=== PATIENT | female | born 1995 | race American Indian/Alaskan Native ===

== ENCOUNTER 2019-11-17 10:03 | Emergency (ER) | payer MEDICAID ==
[2019-11-17] MEDS ORDERED: dilTIAZem 25 MG/5 ML INJ ONE (10:13)
[2019-11-17] MEDS ORDERED: LORazepam 2 MG/ML VIAL ONE (10:19)
[2019-11-17] MEDS ORDERED: SODIUM CHLORIDE 0.9% 1000 ML 1,000 ML IV ONE (10:24)
[2019-11-17] MEDS ORDERED: LORazepam 2 MG/ML VIAL IV ONE (10:26)
[2019-11-17] MEDS ORDERED: dilTIAZem 25 MG/5 ML INJ IV ONE (10:26)
--- NOTE | 2019-11-17 10:31 | Emergency Department Report ---
ED Palpitations HPI - General Stated Complaint: ANXIETY Time Seen by Provider: 11/17/19 10:24 Source: patient, EMS - History of Present Illness Initial Comments: Patient is 24-year-old female with no significant past medical history. Patient presented to the ER via EMS from home for evaluation of sudden onset of palpitation. Patient treated the SVT by EMS and given adenosine 6 and 12 mg with no response. Patient stated that symptoms started during argument with her boyfriend. Patient denied any previous similar symptoms. Patient denied any chest pain or shortness of breath. She stated that she is feeling lightheaded. Patient denied any fever or chills recently. In the emergency room patient heart rate is 160 bpm. Patient given Cardizem 10 mg IV push with no significant improvement. Patient also given Ativan 1 mg IV with improvement. EKG showed a sinus tachycardia. MD Complaint: rapid heart beat, "heart racing", palpitations -: Sudden, This morning Context: occured during rest Treatments Prior to Arrival: adenosine - Related Data Allergies Allergy/AdvReac Type Severity Reaction Status Date / Time No Known Allergies Allergy Verified 03/28/18 13:44 ED Review of Systems ROS: Stated complaint: ANXIETY Other details as noted in HPI Comment: All other systems reviewed and negative Constitutional: denies: chills, fever Respiratory: denies: cough, shortness of breath, SOB with exertion Cardiovascular: palpitations. denies: chest pain Gastrointestinal: denies: abdominal pain, nausea, vomiting, diarrhea, constipation, hematemesis, melena, hematochezia Musculoskeletal: denies: back pain Neurological: denies: headache, weakness, numbness, paresthesias, confusion, abnormal gait ED Past Medical Hx - Surgical History Additional Surgical History: - Social History Smoking Status: Never Smoker Substance Use Type: Alcohol ED Physical Exam - General General appearance: alert, in no apparent distress, anxious - Head Head exam: Present: atraumatic - Eye Eye exam: Present: normal appearance - ENT ENT exam: Present: normal exam, normal orophraynx, mucous membranes moist - Neck Neck exam: Present: normal inspection, full ROM. Absent: tenderness, meningismus, lymphadenopathy, thyromegaly - Respiratory Respiratory exam: Present: normal lung sounds bilaterally - Cardiovascular Cardiovascular Exam: Present: tachycardia - GI/Abdominal GI/Abdominal exam: Present: soft, normal bowel sounds. Absent: distended, tenderness, guarding, rebound, rigid, organomegaly, mass, bruit, pulsatile mass, hernia - Extremities Exam Extremities exam: Present: normal inspection, full ROM, normal capillary refill. Absent: tenderness, pedal edema, joint swelling, calf tenderness - Back Exam Back exam: Present: normal inspection, full ROM. Absent: CVA tenderness (R), CVA tenderness (L) - Neurological Exam Neurological exam: Present: alert, oriented X3, CN II-XII intact, normal gait, reflexes normal - Psychiatric Psychiatric exam: Present: normal mood, anxious. Absent: homicidal ideation, suicidal ideation - Skin Skin exam: Present: warm, intact, normal color ED Course Vital Signs 11/17/19 11/17/19 11/17/19 10:08 10:16 10:30 Temperature Pulse Rate 141 H 169 H 118 H Respiratory 20 18 12 Rate Blood Pressure 126/88 126/87 Blood Pressure [Right] O2 Sat by Pulse Oximetry 11/17/19 11/17/19 11/17/19 10:43 10:46 11:00 Temperature 98.2 F Pulse Rate 148 H 122 H 111 H Respiratory 18 15 17 Rate Blood Pressure 120/82 126/87 128/89 Blood Pressure 148/82 [Right] O2 Sat by Pulse 100 Oximetry 11/17/19 11/17/19 11/17/19 11:16 11:19 11:28 Temperature Pulse Rate 122 H 86 Respiratory 16 18 Rate Blood Pressure 128/89 220/122 Blood Pressure [Right] O2 Sat by Pulse 100 Oximetry 11/17/19 11/17/19 11/17/19 11:30 11:46 12:00 Temperature Pulse Rate 117 H 119 H 127 H Respiratory 26 H 22 16 Rate Blood Pressure 128/89 128/89 118/67 Blood Pressure [Right] O2 Sat by Pulse Oximetry 11/17/19 11/17/19 11/17/19 12:16 12:30 12:46 Temperature Pulse Rate 119 H Respiratory 21 Rate Blood Pressure 118/67 118/67 118/67 Blood Pressure [Right] O2 Sat by Pulse 100 98 Oximetry ED Medical Decision Making - Lab Data Result diagrams: 11/17/19 10:59 11/17/19 10:59 - EKG Data -: EKG Interpreted by Hi EKG shows normal: sinus rhythm Rate: tachycardia - EKG Data Interpretation: no acute changes - Medical Decision Making Patient is 24-year-old female with no significant past medical history. Patient presented to the ER via EMS from home for evaluation of sudden onset of palpitation. Patient treated the SVT by EMS and given adenosine 6 and 12 mg with no response. Patient stated that symptoms started during argument with her boyfriend. Patient denied any previous similar symptoms. Patient denied any chest pain or shortness of breath. She stated that she is feeling lightheaded. Patient denied any fever or chills recently. In the emergency room patient heart rate is 160 bpm. Patient given Cardizem 10 mg IV push with no significant improvement. Patient also given Ativan 1 mg IV with improvement. EKG showed a sinus tachycardia. Patient responded very well to Ativan with her current heart rate is between 80- 90. Patient stated that she is feeling much better. Labs reviewed and is unremarkable except for UDS which is positive for methamphetamine. Patient admitted that she has been smoking marijuana but not methamphetamine. Patient also found to have a potassium of 3.1. Potassium replaced and advised patient to eat more diet rich potassium. Patient also advised to return to the ER if she develop any new symptoms. Critical Care Time: Yes Critical care time in (mins) excluding proc time.: 30 Critical care attestation.: If time is entered above; I have spent that time in minutes in the direct care of this critically ill patient, excluding procedure time. ED Disposition Clinical Impression: Sinus tachycardia, Acute hypokalemia, Methamphetamine abuse Disposition: - TO HOME OR SELFCARE Is pt being admited?: No Condition: Stable Instructions: Hypokalemia (ED), Palpitations (ED) Referrals: PRIMARY CARE, [Primary Care Provider] - 3-5 Days [facility] [Provider Group] - 3-5 Days
[2019-11-17 11:11] LABS: Basophils % (Auto) 0.3 % (0.0-1.8); Eosinophils % (Auto) 0.7 % (0.0-4.3); Hematocrit 38.8 % (30.3-42.9); Hemoglobin 13.3 gm/dl (10.1-14.3); Mean Corpuscular HGB Conc 34 % (30-34); Mean Corpuscular Volume 86 fl (79-97); Monocytes # (Auto) 0.5 K/mm3 (0.0-0.8); Monocytes % (Auto) 7.6 % (0.0-7.3); Platelet Count 208 K/mm3 (140-440); Red Blood Count 4.54 M/mm3 (3.65-5.03); Red Cell Distribution Width 15.5 % (13.2-15.2)
[2019-11-17 11:24] LABS: INR 1.1 (0.87-1.13)
[2019-11-17 11:25] LABS: Partial Thromboplastin Time 24.9 Sec. (24.2-36.6)
[2019-11-17 11:48] LABS: BUN/Creatinine Ratio 22; Blood Urea Nitrogen 11 mg/dL (7-17); Calcium 8.9 mg/dL (8.4-10.2); Free T4 (Free Thyroxine) 1.7 ng/dL (0.76-1.46)
[2019-11-17] MEDS ORDERED: POTASSIUM CHLORIDE ER 20 MEQ TAB PO ONE (12:00)
--- NOTE | 2019-11-17 12:25 | XRay Report ---
CHEST 1 VIEW 144 INDICATION / CLINICAL INFORMATION: Chest Pain COMPARISON: None available. FINDINGS: SUPPORT DEVICES: None HEART / MEDIASTINUM: No significant abnormality. LUNGS / PLEURA: No significant pulmonary or pleural abnormality. No pneumothorax. ADDITIONAL FINDINGS: No significant additional findings. IMPRESSION: No significant acute abnormality Signer Name: Leonardo Lantigua MD Signed: 11/17/2019 12:20 PM Workstation Name: [id number]
[2019-11-17 12:38] LABS: Bilirubin,Urine NEG (Negative); Blood,Urine NEG (Negative); Color,Urine Yellow (Yellow); Mucus,Urine 3+ /HPF
[2019-11-17 12:51] VITALS: BP 118/67
[2019-11-17 13:07] LABS: Amphetamine Screen,Urine PRESUMPTIVE POSITIVE; Benzodiazepines Screen,Urine PRESUMPTIVE NEGATIVE; Cannabinoid Screen,Urine PRESUMPTIVE POSITIVE; Cocaine Screen,Urine PRESUMPTIVE NEGATIVE; Methadone Screen,Urine PRESUMPTIVE NEGATIVE; Opiate Screen,Urine PRESUMPTIVE NEGATIVE
[2019-11-17] MEDS: POTASSIUM CHLORIDE 10 MEQ 10 MEQ/100 ML BAG IV SCH ×2 (13:10→14:09)
[2019-11-17] MEDS ORDERED: SODIUM CHLORIDE 0.9% 1000 ML 1,000 ML ONE (13:52)
== END 2019-11-17 15:13 | disposition home or self-care (01) ==
LOC: ED 10:03
DX: R00.0 Tachycardia, unspecified (principal); E87.6 Hypokalemia; F15.10 Other stimulant abuse, uncomplicated; R42 Dizziness and giddiness
CPT/HCPCS: 36415; 71045; 80048; 80307; 81001; 84439; 84443; 84484; 84703; 85025; 85610; 85730; 93005; 96361; 96365; 96366; 96375; 99285; J2060; J3480; J7030

== ENCOUNTER 2022-01-25 09:21 | Emergency (ER) | payer MEDICAID | END 2022-01-25 10:00 | disposition left against medical advice (07) | LOC: ED 09:21 | DX: R07.89 Other chest pain (principal); R06.02 Shortness of breath; Z53.21 Procedure and treatment not carried out due to patient leaving prior to being seen by health care provider ==

== ENCOUNTER 2022-01-26 12:38 | Inpatient (IN) | payer MEDICAID ==
[2022-01-26 13:38] LABS: Mean Corpuscular HGB Conc 31 % (30-34); Mean Corpuscular Volume 90 fl (79-97); Platelet Count 429 K/mm3 (140-440); Red Cell Distribution Width 19.4 % (13.2-15.2)
--- NOTE | 2022-01-26 14:23 | XRay Report ---
CHEST 2 VIEWS INDICATION / CLINICAL INFORMATION: chest pain. COMPARISON: 11/08/2019 FINDINGS: SUPPORT DEVICES: None. HEART / MEDIASTINUM: No significant abnormality. LUNGS / PLEURA: No significant pulmonary or pleural abnormality. No pneumothorax. ADDITIONAL FINDINGS: No significant additional findings. IMPRESSION: 1. No acute findings. Signer Name: Iker Thompson Jr, MD Signed: 01/26/2022 2:19 PM Workstation Name: [id number]
[2022-01-26 14:35] LABS: Granular Casts,Urine 2 /LPF; Hyaline Casts,Urine 40 /LPF; Mucus,Urine 1+ /HPF
[2022-01-26 14:40] LABS: Alanine Aminotransferase 18 units/L (7-56); BUN/Creatinine Ratio 9; Blood Urea Nitrogen 7 mg/dL (7-17); Calcium 10.4 mg/dL (8.4-10.2); Hemolysis Index 34
[2022-01-26 14:57] LABS: Albumin 7.2 g/dL (3.9-5)
--- NOTE | 2022-01-26 15:06 | Event Note ---
ED Screening Note ED Screening Note: ILL APPEARING FEMALE WRITHING W ABD PAIN REPORTS BLOODY EMESIS AND STOOLS PMH NONE PSH NONE RX NONE DENIES CIG/ETOH/DRUGS HR 127 This initial assessment/diagnostic orders/clinical plan/treatment(s) is/are subject to change based on patients health status, clinical progression and re- assessment by fellow clinical providers in the ED. Further treatment and workup at subsequent clinical providers discretion. Patient/guardian urged not to elope from the ED as their condition may be serious if not clinically assessed and managed. Initial orders include: MAIN ER FOR EVAL Labs 01/26/22 01/26/22 01/26/22 12:25 12:57 12:57 WBC 10.9 RBC 4.70 Hgb 13.0 Hct 42.0 MCV 90 MCH 28 MCHC 31 RDW 19.4 H Plt Count 429 Sodium 134 L Potassium 5.0 Chloride 93.6 L Carbon Dioxide 8 L* Anion Gap 37 BUN 7 Creatinine 0.8 Estimated GFR > 60 BUN/Creatinine Ratio 9 Glucose 143 H Calcium 10.4 H Total Bilirubin 0.50 AST 35 ALT 18 Alkaline Phosphatase 71 Troponin T < 0.010 NT-Pro-B Natriuret Pep 24.98 Total Protein 9.9 H Albumin 7.2 H Albumin/Globulin Ratio 2.7 HCG, Qual Urine RBC (Auto) U Epithel Cells (Auto) 01/26/22 01/26/22 12:57 13:47 WBC RBC Hgb Hct MCV MCH MCHC RDW Plt Count Sodium Potassium Chloride Carbon Dioxide Anion Gap BUN Creatinine Estimated GFR BUN/Creatinine Ratio Glucose Calcium Total Bilirubin AST ALT Alkaline Phosphatase Troponin T NT-Pro-B Natriuret Pep Total Protein Albumin Albumin/Globulin Ratio HCG, Qual Negative Urine RBC (Auto) 162.0 U Epithel Cells (Auto) 4.0 Vital Signs 01/26/22 12:42 Temperature 98.3 F Pulse Rate 127 H Respiratory 20 Rate Blood Pressure 125/99 [Right] O2 Sat by Pulse 100 Oximetry
[2022-01-26] MEDS ORDERED: SODIUM CHLORIDE 0.9% 1000 ML 1,000 ML IV ONE (15:07)
[2022-01-26] MEDS ORDERED: ONDANSETRON 4 MG/2 ML INJ IV ONE (15:07)
[2022-01-26 15:10] LABS: Color,Urine Amber (Yellow)
[2022-01-26] MEDS ORDERED: FAMOTIDINE 20 MG/2 ML INJ IV ONE (15:30)
[2022-01-26] MEDS ORDERED: LACTATED RINGERS 1000 ML IV SOLN IV SCH ×2 (15:30→15:45)
--- NOTE | 2022-01-26 16:16 | Emergency Department Report ---
HPI - General Chief Complaint: Dyspnea/Respdistress PUI?: No Time Seen by Provider: 01/26/22 12:47 - HPI HPI: 26-year-old female presents for evaluation of 4 days of nausea vomiting epigastric pain, right upper quadrant and right lower quadrant pain, diarrhea, dark-colored stools. Patient states she has not been able to tolerate liquids or solids. She reports strict blood vomitus. She denies any known sick contacts or travel history. She states that she has irregular menstrual cycles and has been bleeding for the past 9 days but states she is having light spotting. She also complains of chest pain or shortness of breath with exertion. No pain or swelling in her ankles or legs. She denies any tobacco alcohol or illicit drug usage. She denies having consumed iron tablets or hakq-ivy-itdkccd GI medication. Pain to abdomen is constant radiating to the aforementioned areas and has no aggravating or alleviating factors. Pain currently 8 out of 10. ED Past Medical Hx - Past Medical History Previous Medical History?: Yes Hx Psychiatric Treatment: Yes (anxiety) - Surgical History Past Surgical History?: No Additional Surgical History: x 2 - Social History Smoking Status: Never Smoker Substance Use Type: Alcohol ED Review of Systems ROS: Stated complaint: SOB Other details as noted in HPI Comment: All other systems reviewed and negative Physical Exam - Physical Exam Vital Signs: Vital Signs 01/26/22 12:42 Temperature 98.3 F Pulse Rate 127 H Respiratory 20 Rate Blood Pressure 125/99 [Right] O2 Sat by Pulse 100 Oximetry General: Gen: Adult female, mildly ill-appearing, disheveled, no drooling no stridor, no respiratory distress. Breathing is nonlabored HEENT: Normocephalic atraumatic pupils equally round and reactive to light extraocular muscles intact sclera anicteric Neck: Full range of motion, no midline spinal tenderness palpation, no JVD, no carotid bruits, no nuchal rigidity CVS: S1-S2 regular rate and rhythm with no gallops rubs or murmurs, chest wall nontender Pulmonary: Clear to auscultation bilaterally, no wheezes rales or rhonchi Abdomen: Soft nondistended nontender no guarding or rebound tenderness, no palpable deformities or step-offs, normal active bowel sounds, no hepatosplenomegaly, no pulsatile masses : Deferred Extremities: No cyanosis no clubbing no edema, intact distal peripheral pulses, Integumentary: Skin normal, no petechia no purpura no abscess no lacerations no evidence of trauma no evidence of infection Neuro: Patient is awake alert and oriented to person place time situation, mentating well, cranial nerves II through XII intact, no focal neurodeficits, sensation grossly tact Psych: Calm cooperative, mood affect normal ED Course Vital Signs 01/26/22 12:42 Temperature 98.3 F Pulse Rate 127 H Respiratory 20 Rate Blood Pressure 125/99 [Right] O2 Sat by Pulse 100 Oximetry - Reevaluation(s) Reevaluation #1: 01/26/22 : 16:21: Pt reassessed; she remains ill appearing; mentation normal, GCS 15, moving all extremities; she is protecting her airway, will continue monitor Reevaluation #2: 01/26/22 18:02 Patient reassessed. She states she is feeling improved. Her mentation is normal. She is moving all extremities. Vitals reviewed. Pt remains tachycardic and tachypneic. She is moving all extremties, GCS 15. She denies any pain at this time. Reevaluation #3: 01/26/22 21:51 Vitals reviewed. Pt is asleep but easily arousable; GCS 15, moving all extremities; pt denies any pain, she is improved clinically and is no distress Reevaluation #4: 01/26/22 23:38 Patient reassessed. She states she is feeling better. She denies any active abdominal pain. Patient is requesting to eat ice chips. She denies any active nausea or any other symptoms. GCS remains 15. We will continue monitor. - Consultations Consultation #1: 01/26/22 19:20: I telephoned Dr. Reddy, the on-call playground attendant. Case was reviewed with her via telephone. Per her verbal report, she advises emergent transfer of the patient to a larger facility that has cardiothoracic surgery and or "advanced gastroenterology." She states that the patient may need an esophageal stent. She advises calling [facility] to see if they would be willing to accept the patient. The patient is to be kept n.p.o. and given Zosyn IV for gram-negative anaerobes. She also encourages advanced resuscitation via intravenous fluids. 20:48 Returned call received from [facility] [place] [facility]. Case reviewed with transfer center coordinator. For her verbal report the hospitalist on MedSurg and ICU diversion as well as emergency department diversion. They will telephone the on-call cardiothoracic surgeon, , and will call me back to have me discussed the case with him once he becomes available. 21:23: Returned call received from [facility]. I spoke to Dr. Pineda. Case reviewed with him via telephone. He advises that the patient undergoes an emergent esophagram. I told him that unfortunately this service is not available emergently at this time at [facility]. He states that as an alternative the patient may undergo a CT scan of the chest with oral contrast to evaluate for extravasation in the setting of possible esophageal perforation. He states that if the patient does not have an effusion on imaging to suggest active extravasation, he advises admission here if possible, and the patient is to receive supportive care. 021:58 Point time call received from [facility]. I was transferred to speak with , the on-call cardiothoracic surgeon, via telephone. Case reviewed with him. Per his verbal report, the patient needs an emergent esophagram. I told him that this is not available to be performed at [facility] at this time. He advises that as an alternative the patient will need a CT scan with oral contrast to evaluate for extravasation and confirmed esophageal perforation. Per his verbal report, patient will not be accepted for transfer without confirmation of esophageal perforation in the setting of the findings above. 2256: Return call received from critical care social work associate, Dr.Mohammad Davis. Please note that at this point, the patient CT scan results, specifically the CT scan with oral contrast, had just resulted. Case reviewed with him at length inclu bri the reading radiologist documented impression of the newly resulted CT scan of chest with oral contrast. He advises that the patient be started on a D5 bicarb drip. He states the patient's presentation is consistent with starvation ketosis. If the patient is able to be admitted here to the intensive care unit, he advises that the patient kept here. He recommends the patient be started on D5 and bicarbonate drip. [id number] I telephoned the on-call social work associate, Dr. Pederson. Case reviewed with him. He has verbalized agreement to accept the patient to the medical intensive care unit but recommends repeat comprehensive metabolic panel, repeat lipase, repeat arterial blood gas. He also advises that the patient undergo placement of a Mills catheter. Consultation #2: 01/27/22 00:20 I just spoke to Dr. Pederson, social work associate, concerning the patient. The patient's labs including repeat lipase ABG and comprehensive metabolic panel have resulted. Results were reviewed with him. He advises at this time against providing the patient with bicarb drips or giving the patient bicarbonate pushes. He advises continued volume resuscitation via intravenous fluids and supportive care. I informed him that I have assessed the patient multiple times at her bedside and she denies any pain, last having received morphine several hours ago. Her mentation remains normal and she is no longer toxic appearing per my assessment. He advises that the patient no longer be admitted to the medical intensive care unit but rather be admitted to the stepdown unit. 12:20 am: I called Dr. Flores and reviewed the case with him. I informed him of my updated discussion with Dr. Pederson. He verbalized understanding t. ED Medical Decision Making - Lab Data Result diagrams: 01/26/22 12:25 01/26/22 23:19 Critical Care Time: Yes Critical care time in (mins) excluding proc time.: 60 Critical care attestation.: If time is entered above; I have spent that time in minutes in the direct care of this critically ill patient, excluding procedure time. ED Disposition Clinical Impression: High anion gap metabolic acidosis Disposition: ADMITTED INPATIENT Is pt being admited?: No Does the pt Need Aspirin: No Condition: Stable Referrals: PRIMARY CARE, [Primary Care Provider] - 3-5 Days
[2022-01-26 16:41] LABS: Amphetamine Screen,Urine Negative; Benzodiazepines Screen,Urine Negative; Cocaine Screen,Urine Negative; Methadone Screen,Urine Negative; Opiate Screen,Urine Negative
[2022-01-26 17:32] LABS: Cannabinoid Screen,Urine Positive
--- NOTE | 2022-01-26 18:34 | Cat Scan Report ---
CT ABDOMEN AND PELVIS WITH INTRAVENOUS CONTRAST INDICATION / CLINICAL INFORMATION: RLQ/RUQ pain; vomiting. TECHNIQUE: 60 cc Omnipaque [address] scans at this location are performed using CT do se reduction for ALARA by means of automated exposure control. COMPARISON: None available. FINDINGS: ABDOMEN: There is a nonspecific subcentimeter hypodense lesion in the inferior aspect of the right lo be the liver which is of doubtful clinical significance. The gallbladder, bile ducts, pancreas, splee n, adrenal glands and kidneys are normal in appearance. There is mild increased fluid in the stomach. There is no evidence of bowel obstruction, wall thicken ing or free air. No adenopathy is present. No vascular abnormality is seen. There is a small amount o f gas in the right retrocrural space. There is a small pneumomediastinum with air surrounding the lower thoracic esophagus. The lung bases are otherwise clear. There is no evidence of pneumothorax or pleural effusion. PELVIS: The distal ureters and urinary bladder are normal. The uterus and adnexal regions are unremar kable. No abnormal mass or fluid collection is present. A normal appendix is seen and there is no pat dence of diverticulitis. I do not identify a hernia. IMPRESSION: Small pneumomediastinum with a small amount of gas extending into the right retrocrural s pace. In view of the history of vomiting, Boerhaave syndrome should be considered Signer Name: Jonathon Barajas MD Signed: 01/26/2022 6:29 PM Workstation Name: [id number]
--- NOTE | 2022-01-26 19:29 | Nuclear Medicine Report ---
NUCLEAR MEDICINE PERFUSION LUNG SCAN INDICATION / CLINICAL INFORMATION: Chest pain, shortness of breath and elevated d-dimer. TECHNIQUE: 5.1 mCi of Tc-99m MAA were given by IV. COMPARISON: Chest radiograph dated earlier today at 2:17 PM. FINDINGS: PERFUSION: No significant perfusion defects. ADDITIONAL FINDINGS: None. IMPRESSION: Very low probability for pulmonary embolism. Signer Name: Jonathon Barajas MD Signed: 01/26/2022 7:24 PM Workstation Name: [id number]
[2022-01-26 20:04] LABS: ABG Base Excess -22.1 mmol/L (-2.0-3.0); ABG Methemoglobin 0.6 % (0.0-1.5); ABG Oxygen Saturation 99.1 % (95.0-99.0); ABG PCO2 11.3 mm Hg; ABG PO2 186.6 mm Hg (80.0-90.0)
[2022-01-26 20:12] LABS: ABG PH 7.17 pH Units (7.350-7.450)
[2022-01-26] MEDS ORDERED: PIPERACIL/TAZOBACTA 4.5/NS 100 4.5 GM/100 ML VIAL IV ONE (20:24)
--- NOTE | 2022-01-26 20:34 | Cat Scan Report ---
CT CHEST WITHOUT CONTRAST INDICATION / CLINICAL INFORMATION: pneumomediastinum on ct a/p. TECHNIQUE: Axial CT images were obtained through the chest without contrast. All CT scans at this [facility] ation are performed using CT dose reduction for ALARA by means of automated exposure control. COMPARISON: CT abdomen/pelvis earlier today. FINDINGS: HEART: No significant abnormality. CORONARY ARTERY CALCIFICATION: Absent -- None. THORACIC AORTA: No significant abnormality. MEDIASTINUM / MARBELLA: There is a small pneumomediastinum surrounding the lower thoracic esophagus start ing at approximately the subcarinal region and extending to the GE junction. No mucosal thickening or mass is seen involving the esophagus. No mediastinal fluid collection. PLEURA: No pleural effusion. No pneumothorax. LUNGS: No acute air space or interstitial disease. ADDITIONAL FINDINGS: None. UPPER ABDOMEN: Mild amount of gas in the right retrocrural space. SKELETAL SYSTEM: No significant abnormality. IMPRESSION: Mild pneumomediastinum is related to the lower esophagus. In view of the history of vomit ing, esophageal perforation is suspected (Boerhaave syndrome). No mediastinal fluid collection or oth er abnormality. Signer Name: Jonathon Barajas MD Signed: 01/26/2022 8:29 PM Workstation Name: [id number]
[2022-01-26] MEDS ORDERED: LORazepam 2 MG/ML VIAL IV STA (20:38)
[2022-01-26] MEDS ORDERED: LACTATED RINGERS 1,000 ML IV ONE (21:17)
--- NOTE | 2022-01-26 22:54 | Cat Scan Report ---
CT OF CHEST WITHOUT CONTRAST INDICATION: r/o esoph perforation, history of right-sided pain, vomiting, small pneumomediastinum see n on CT abdomen and pelvis tonight CONTRAST: With oral, without IV COMPARISON: CT abdomen and pelvis tonight All CT scans at this location are performed using CT dose reduction for ALARA by means of automated e xposure control. FINDINGS: No significant axillary or chest wall abnormalities. Views of the upper abdomen again show the small amount or retrocrural air. Stomach is distended with oral contrast. No mediastinal or hilar masses or abnormal fluid collections are seen. The small pneumomediastinum is again seen mostly in t he lower posterior mediastinum. Contrast is seen in the lumen of the esophagus with no evidence of ex travasation. Note definite esophageal abnormality is seen. No mediastinal or hilar masses. No obvious endobronchial lesions. No pleural effusions. No pneumothorax. Lung fletcher are clear of infiltrates. A small peripheral possible nodule versus area of scarring is seen laterally in the left upper lobe o n image 42 of series 2 measuring 3 mm. 3 mm possible nodule is also seen posteriorly in the left lowe r lobe on image 52. These are of doubtful significance in this young patient. IMPRESSION: Continued small lower posterior pneumomediastinum is minimal retrocrural gas. No evidence of esophageal injury is noted with no extravasation seen and no source of this small amount of air i s identified. No other acute abnormalities are seen. INCIDENTAL PULMONARY NODULE RECOMMENDATIONS Solid Nodule size* <6 mm -- Single or Multiple - Low Risk Patient: No routine follow-up - High Risk Patient: Optional CT at 12 months Note These recommendations do not apply to lung cancer screening, patients with immunosuppression, o r patients with known primary cancer. Note Newly detected indeterminate nodule in persons 35 years of age or older. Persons under the age of 35 should not receive follow-up unless there is a known primary cancer. Low Risk Patient -- minimal or absent history of smoking and of other known risk factors. High Risk Patient -- history of smoking or of other known risk factors. *Dimensions are average of long and short axes, rounded to the nearest millimeter. Based on 2017 Fleischner Society Guidelines found in Radiology 2017 284:228-243. [email or web address] Signer Name: Leonardo Lantigua MD Signed: 01/26/2022 10:49 PM Workstation Name: [id number]
[2022-01-26] MEDS ORDERED: SODIUM BICARB 8.4% 50 MEQ/50 ML SYRINGE IV ONE (23:08)
[2022-01-26 23:37] LABS: ABG Base Excess -18.7 mmol/L (-2.0-3.0); ABG HCO3 6.9 mmol/L (20.0-26.0); ABG Methemoglobin 0.7 % (0.0-1.5); ABG Oxygen Saturation 98.4 % (95.0-99.0); ABG PCO2 17.1 mm Hg; ABG PH 7.222 pH Units (7.350-7.450); ABG PO2 132.4 mm Hg (80.0-90.0)
[2022-01-26 23:57] LABS: Alanine Aminotransferase 11 units/L (7-56); Albumin 4.9 g/dL (3.9-5); BUN/Creatinine Ratio 9; Blood Urea Nitrogen 8 mg/dL (7-17); Calcium 8.6 mg/dL (8.4-10.2); Hemolysis Index 16
[2022-01-27] MEDS ORDERED: SODIUM BICARB 8.4% 50 MEQ/50 ML SYRINGE IV ONE ×2 (00:11→03:47)
[2022-01-27] MEDS ORDERED: ALBUTEROL 2.5 MG/3 ML NEBU IH PRN (03:31)
[2022-01-27] MEDS ORDERED: MORPHINE 2 MG/1 ML INJ IV PRN (03:31)
[2022-01-27] MEDS ORDERED: ONDANSETRON 4 MG/2 ML INJ IV PRN (03:31)
[2022-01-27] MEDS ORDERED: MORPHINE 4 MG/1 ML INJ IV PRN (03:31)
--- NOTE | 2022-01-27 03:39 | History and Physical Report ---
History of Present Illness Date of examination: 01/27/22 Date of admission: 01/27/22 Chief complaint: Dyspnea Respiratory distress Nausea vomiting History of present illness: 26-year-old female with history of anxiety was brought to the emergency room because of 4 days of nausea vomiting epigastric pain, right upper quadrant and right lower quadrant pain, diarrhea, dark-colored stools. Patient states she has not been able to tolerate liquids or solids. She reports strict blood vomitus. She denies any known sick contacts or travel history. She states that she has irregular menstrual cycles and has been bleeding for the past 9 days but states she is having light spotting. She also complains of chest pain or shortness of breath with exertion. No pain or swelling in her ankles or legs. She denies any tobacco alcohol or illicit drug usage. She denies having consumed iron tablets or [id number] GI medication. Pain to abdomen is constant radiating to the aforementioned areas and has no aggravating or alleviating factors. Pain currently 8 out of 10. In the emergency room CT scan of the chest showed mild pneumomediastinum is related to the lower esophagus. 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 No mediastinal fluid collection or other abnormality. Also patient sodium is 134, potassium 5.2, bicarb 8, anion gap 37, BUN 7 creatinine 0.8 glucose 143 lactic acid 2.30 later lactic acid is 1.10. Urine drug screen is positive for marijuana. Reevaluation #1: 01/26/22 : 16:21: Pt reassessed; she remains ill appearing; mentation normal, GCS 15, moving all extremities; she is protecting her airway, will continue monitor Reevaluation #2: 01/26/22 18:02 Patient reassessed. She states she is feeling improved. Her mentation is normal. She is moving all extremities. Vitals reviewed. Pt remains tachycardic and tachypneic. She is moving all extremties, GCS 15. She denies any pain at this time. Reevaluation #3: 01/26/22 21:51 Vitals reviewed. Pt is asleep but easily arousable; GCS 15, moving all extremities; pt denies any pain, she is improved clinically and is no distress Reevaluation #4: 01/26/22 23:38 Patient reassessed. She states she is feeling better. She denies any active abdominal pain. Patient is requesting to eat ice chips. She denies any active nausea or any other symptoms. GCS remains 15. We will continue monitor. - Consultations Consultation #1: 01/26/22 19:20: ER doctor telephoned Dr. Reddy, the on-call cheese packer. Case was reviewed with her via telephone. Per her verbal report, she advises emergent transfer of the patient to a larger facility that has cardiothoracic surgery and or "advanced gastroenterology." She states that the patient may need an esophageal stent. She advises calling [facility] to see if they would be willing to accept the patient. The patient is to be kept n.p.o. and given Zosyn IV for gram-negative anaerobes. She also encourages advanced resuscitation via intravenous fluids. 20:48 Returned call received from [place] [facility] [place]. Case reviewed with transfer center coordinator. For her verbal report the hospitalist on MedSurg and ICU diversion as well as emergency department diversion. They will telephone the on-call cardiothoracic surgeon, , and will call me back to have me discussed the case with him once he becomes available. 21:23: Returned call received from [facility]. I spoke to Dr. Pineda. Case reviewed with him via telephone. He advises that the patient undergoes an emergent esophagram. I told him that unfortunately this service is not a vailable emergently at this time at [facility]. He states that as an alternative the patient may undergo a CT scan of the chest with oral contrast to evaluate for extravasation in the setting of possible esophageal perforation. He states that if the patient does not have an effusion on imaging to suggest active extravasation, he advises admission here if possible, and the patient is to receive supportive care. 021:58 Point time call received from [facility]. I was transferred to speak with , the on-call cardiothoracic surgeon, via telephone. Case reviewed with him. Per his verbal report, the patient needs an emergent esophagram. I told him that this is not available to be performed at [facility] at this time. He advises that as an alternative the patient will need a CT scan with oral contrast to evaluate for extravasation and confirmed esophageal perforation. Per his verbal report, patient will not be accepted for transfer without confirmation of esophageal perforation in the setting of the findings above. 225: Return call received from critical care manager store, Dr.Mohammad Davis. Please note that at this point, the patient CT scan results, specifically the CT scan with oral contrast, had just resulted. Case reviewed with him at length including the reading radiologist documented impression of the newly resulted CT scan of chest with oral contrast. He advises that the patient be started on a D5 bicarb drip. He states the patient's presentation is consistent with starvation ketosis. If the patient is able to be admitted here to the intensive care unit, he advises that the patient kept here. He recommends the patient be started on D5 and bicarbonate drip. [id number] I telephoned the on-call manager store, Dr. Pederson. Case reviewed with him. He has verbalized agreement to accept the patient to the medical intensive care unit but recommends repeat comprehensive metabolic panel, repeat lipase, repeat arterial blood gas. He also advises that the patient undergo placement of a Mills catheter. Consultation #2: 01/27/22 00:20 ER doctor just spoke to Dr. Pederson, manager store, concerning the patient. The patient's labs including repeat lipase ABG and comprehensive metabolic panel have resulted. Results were reviewed with him. He advises at this time against providing the patient with bicarb drips or giving the patient bicarbonate pushes. He advises continued volume resuscitation via intravenous fluids and supportive care. I informed him that I have assessed the patient multiple times at her bedside and she denies any pain, last having received morphine several hours ago. Her mentation remains normal and she is no longer toxic appearing per my assessment. He advises that the patient no longer be admitted to the medical intensive care unit but rather be admitted to the stepdown unit. Past History Past Medical History: other (Anxiety) Past Surgical History: Other ( x2) Social history: alcohol abuse Family history: hypertension Medications and Allergies Allergies Allergy/AdvReac Type Severity Reaction Status Date / Time No Known Allergies Allergy Verified 01/26/22 12:47 Active Meds: Active Medications Acetaminophen (Acetaminophen 325 Mg Tab) 650 mg PO Q4H PRN PRN Reason: Pain MILD(1-3)/Fever >100.5/OLIVER Albuterol (Albuterol 2.5 Mg/3 Ml Nebu) 2.5 mg IH Q3HRT PRN PRN Reason: Shortness Of Breath Albuterol/Ipratropium (Ipratropium/Albuterol Sulfate 3 Ml Ampul.Neb) 1 ampul IH Q6HRT NISHI Sodium Chloride (Nacl 0.9% 1000 Ml) 1,000 mls @ 125 mls/hr IV DIRECT NISHI Sodium Bicarbonate 150 meq/ (Dextrose) 1,150 mls @ 125 mls/hr IV DIRECT NISHI Lactated Ringer's (Lactated Ringers 1000 Ml Iv Soln) 1,000 ml IV DIRECT NISHI Last Admin: 01/26/22 22:51 Dose: 1,000 ml Lactated Ringer's (Lactated Ringers 1000 Ml Iv Soln) 1,000 ml IV DIRECT NISHI Morphine Sulfate (Morphine 2 Mg/1 Ml Inj) 2 mg IV Q4H PRN PRN Reason: Pain, Moderate (4-6) Morphine Sulfate (Morphine 4 Mg/1 Ml Inj) 4 mg IV Q4H PRN PRN Reason: Pain , Severe (7-10) Ondansetron HCl (Ondansetron 4 Mg/2 Ml Inj) 4 mg IV Q8H PRN PRN Reason: Nausea And Vomiting Pantoprazole Sodium (Pantoprazole 40 Mg Inj) 40 mg IV BID NISHI Sodium Chloride (Sodium Chloride 0.9% 10 Ml Flush Syringe) 10 ml IV BID NISHI Sodium Chloride (Sodium Chloride 0.9% 10 Ml Flush Syringe) 10 ml IV PRN PRN PRN Reason: LINE FLUSH Review of Systems Cardiovascular: chest pain, shortness of breath, dyspnea on exertion Respiratory: shortness of breath, dyspnea on exertion Gastrointestinal: abdominal pain, nausea, vomiting, other (nausea vomiting epigastric pain, right upper quadrant and right lower quadrant pain, diarrhea, dark-colored stools. ) Exam - Constitutional Vitals: Temp Pulse Resp BP Pulse Ox 97.9 F 104 H 22 129/87 100 01/26/22 18:54 01/27/22 00:45 01/27/22 00:45 01/27/22 00:45 01/27/22 00:45 General appearance: Present: no acute distress, well-nourished - EENT Eyes: Present: PERRL ENT: hearing intact, clear oral mucosa - Neck Neck: Present: supple, normal ROM - Respiratory Respiratory effort: normal Respiratory: bilateral: CTA - Cardiovascular Heart Sounds: Present: S1 & S2. Absent: rub, click - Extremities Extremities: pulses symmetrical, No edema Peripheral Pulses: within normal limits - Abdominal General gastrointestinal: Present: soft, non-tender, non-distended, normal bowel sounds Female genitourinary: Present: normal - Integumentary Integumentary: Present: clear, warm, dry - Musculoskeletal Musculoskeletal: gait normal, strength equal bilaterally - Psychiatric Psychiatric: appropriate mood/affect, intact judgment & insight - Neurologic Neurologic: CNII-XII intact, moves all extremities HEART Score - HEART Score Troponin: Troponin T < 0.010 ng/mL (0.00-0.029) 01/26/22 12:57 Results - Labs CBC & Chem 7: 01/26/22 12:25 01/26/22 23:19 Labs: Laboratory Last Values WBC 10.9 K/mm3 (4.5-11.0) 01/26/22 12:25 RBC 4.70 M/mm3 (3.65-5.03) 01/26/22 12:25 Hgb 13.0 gm/dl (10.1-14.3) 01/26/22 12:25 Hct 42.0 % (30.3-42.9) 01/26/22 12:25 MCV 90 fl (79-97) 01/26/22 12:25 MCH 28 pg (28-32) 01/26/22 12:25 MCHC 31 % (30-34) 01/26/22 12:25 RDW 19.4 % (13.2-15.2) H 01/26/22 12:25 Plt Count 429 K/mm3 (140-440) 01/26/22 12:25 D-Dimer 880.44 ng/mlDDU (0-234) H 01/26/22 16:46 ABG pH 7.222 pH Units (7.350-7.450) L 01/26/22 23:30 ABG pCO2 17.1 mm Hg 01/26/22 23:30 ABG pO2 132.4 mm Hg (80.0-90.0) H 01/26/22 23:30 ABG HCO3 6.9 mmol/L (20.0-26.0) L 01/26/22 23:30 ABG O2 Saturation 98.4 % (95.0-99.0) 01/26/22 23:30 ABG O2 Content 15.2 (0.0-44) 01/26/22 23:30 ABG Base Excess -18.7 mmol/L (-2.0-3.0) L 01/26/22 23:30 ABG Hemoglobin 11.0 gm/dl (12.0-16.0) L 01/26/22 23:30 ABG Carboxyhemoglobin 1.3 % (0.0-5.0) 01/26/22 23:30 ABG Methemoglobin 0.7 % (0.0-1.5) 01/26/22 23:30 Oxyhemoglobin 96.4 % (95.0-99.0) 01/26/22 23:30 FiO2 21 % 01/26/22 23:30 Sodium 136 mmol/L (137-145) L 01/26/22 23:19 Potassium 5.2 mmol/L (3.6-5.0) H 01/26/22 23:19 Chloride 104.4 mmol/L (98-107) 01/26/22 23:19 Carbon Dioxide 8 mmol/L (22-30) L* 01/26/22 23:19 Anion Gap 29 mmol/L 01/26/22 23:19 BUN 8 mg/dL (7-17) 01/26/22 23:19 Creatinine 0.9 mg/dL (0.6-1.2) 01/26/22 23:19 Estimated GFR > 60 ml/min 01/26/22 23:19 BUN/Creatinine Ratio 9 % 01/26/22 23:19 Glucose 210 mg/dL (65-100) H 01/26/22 23:19 Lactic Acid 1.10 mmol/L (0.7-2.0) 01/26/22 23:19 Calcium 8.6 mg/dL (8.4-10.2) D 01/26/22 23:19 Total Bilirubin 0.40 mg/dL (0.1-1.2) 01/26/22 23:19 AST 20 units/L (5-40) 01/26/22 23:19 ALT 11 units/L (7-56) 01/26/22 23:19 Alkaline Phosphatase 51 units/L (35-129) 01/26/22 23:19 Total Creatine Kinase 57 units/L (30-135) 01/26/22 16:46 Troponin T < 0.010 ng/mL (0.00-0.029) 01/26/22 12:57 NT-Pro-B Natriuret Pep 24.98 pg/mL (0-450) 01/26/22 12:57 Total Protein 7.8 g/dL (6.3-8.2) D 01/26/22 23:19 Albumin 4.9 g/dL (3.9-5) 01/26/22 23:19 Albumin/Globulin Ratio 1.7 % 01/26/22 23:19 Lipase 1229 units/L (13-60) H 01/26/22 23:19 HCG, Qual Negative (Negative) 01/26/22 12:57 Urine Color [place] (Yellow) 01/26/22 13:47 Urine Turbidity Cloudy (Clear) 01/26/22 13:47 Specific [place] (Man) 1.030 (1.003-1.030) 01/26/22 13:47 Ur Protein (Man) 4+ mg/dL (Negative) 01/26/22 13:47 Ur Ketones (Man) 4+ (Negative) 01/26/22 13:47 Ur Nitrite (Man) Negative (Negative) 01/26/22 13:47 Ur Reducing Substances Not Reportable 01/26/22 13:47 Urine Bilirubin (Man) Negative (Negative) 01/26/22 13:47 Urine Ictotest Not Reportable 01/26/22 13:47 Leukocyte Esterase (Man) Negative (Negative) 01/26/22 13:47 Urine WBC (Auto) 1.0 /HPF (0.0-6.0) 01/26/22 13:47 Urine RBC (Auto) 162.0 /HPF (0.0-6.0) 01/26/22 13:47 U Epithel Cells (Auto) 4.0 /HPF (0-13.0) 01/26/22 13:47 Urine RBC (Manual) 5+ (Negative) 01/26/22 13:47 Hyaline Casts 40 /LPF 01/26/22 13:47 Granular Casts 2 /LPF 01/26/22 13:47 Urine Mucus 1+ /HPF 01/26/22 13:47 Urine Opiates Screen Negative 01/26/22 16:06 Urine Methadone Screen Negative 01/26/22 16:06 Ur Barbiturates Screen Negative 01/26/22 16:06 Ur Phencyclidine Scrn Negative 01/26/22 16:06 Ur Amphetamines Screen Negative 01/26/22 16:06 U Benzodiazepines Scrn Negative 01/26/22 16:06 Urine Cocaine Screen Negative 01/26/22 16:06 U Marijuana (THC) Screen Positive 01/26/22 16:06 Drugs of Abuse Note Disclamer 01/26/22 16:06 Plasma/Serum Alcohol < 0.01 % (0-0.07) 01/26/22 23:19 - Imaging and Cardiology CT scan - abdomen: report reviewed CT scan - chest: report reviewed Assessment and Plan VTE prophylaxis?: Mechanical Plan of care discussed with patient/family: Yes - Patient Problems (1) Pneumomediastinum Current Visit: Yes Status: Acute Plan to address problem: Admit the patient to the IMCU. Oxygen via nasal penetrator per minute. DuoNeb via nebulizer every 4 hours. Albuterol via nebulizer every 4 hours as needed. NPO. Normal saline at the rate of 125 cc/h. Protonix 40 mg IV every 12 hours. Rocephin 2 g IV daily. Critical care and GI evaluation. (2) Boerhaave syndrome Current Visit: Yes Status: Acute Plan to address problem: Oxygen via nasal penetrator per minute. DuoNeb via nebulizer every 4 hours. Albuterol via nebulizer every 4 hours as needed. NPO. Normal saline at the rate of 125 cc/h. Protonix 40 mg IV every 12 hours. Rocephin 2 g IV daily. Critical care and GI evaluation. (3) High anion gap metabolic acidosis Current Visit: Yes Status: Acute Plan to address problem: NPO. Bicarb drip with D5W at the rate of 125 cc/h. Protonix 40 mg IV every 12 hours. Rocephin 2 g IV daily. Critical care and GI evaluation. (4) Nausea & vomiting Current Visit: Yes Status: Acute Plan to address problem: NPO. Normal saline at the rate of 125 cc/h. Protonix 40 mg IV every 12 hours. Zofran 4 mg IV every 8 hours as needed. GI evaluation. (5) Abdominal pain Current Visit: Yes Status: Acute Plan to address problem: NPO. Normal saline at the rate of 125 cc/h. Protonix 40 mg IV every 12 hours. Morphine 2 mg IV every 6 hours as needed. GI evaluation. (6) DVT prophylaxis Current Visit: Yes Status: Acute Plan to address problem: SCD for DVT prophylaxis. Protonix 40 mg IV every 12 hours for GI prophylaxis. Patient is a full code
[2022-01-27] MEDS ORDERED: SODIUM CHLORIDE 0.9% 1000 ML 1,000 ML IV SCH (03:45)
[2022-01-27] MEDS ORDERED: SODIUM BICARBONATE 150 MEQ in DEXTROSE 5% IN WATER 1,000 ML IV SCH (04:00)
--- NOTE | 2022-01-27 07:55 | Gastroenterology Consultation ---
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 However she reports that yesterday she went and had 4 shots of al cohol which is more than she usually drinks. She reports that after that she developed epigastric abdominal pain and severe nausea vomiting and then came into the emergency room. She reports her abdominal pain is epigastric, sharp, severe, radiating to the back, associate with nausea. No vomiting currently. She complains of very dry mouth. Of note no IV fluids are currently running. She denies any prior history of GI issues Obtained/updated/reviewed patient's current medications Past History Past Medical History: other (Anxiety) Past Surgical History: Other ( x2) Social history: alcohol abuse Family history: hypertension, other (Sister with Crohn's disease) Medications and Allergies Allergies Allergy/AdvReac Type Severity Reaction Status Date / Time No Known Allergies Allergy Verified 01/26/22 12:47 Active Meds: Active Medications Acetaminophen (Acetaminophen 325 Mg Tab) 650 mg PO Q4H PRN PRN Reason: Pain MILD(1-3)/Fever >100.5/OLIVER Albuterol (Albuterol 2.5 Mg/3 Ml Nebu) 2.5 mg IH Q3HRT PRN PRN Reason: Shortness Of Breath Albuterol/Ipratropium (Ipratropium/Albuterol Sulfate 3 Ml Ampul.Neb) 1 ampul IH Q6HRT NISHI Sodium Chloride (Nacl 0.9% 1000 Ml) 1,000 mls @ 125 mls/hr IV DIRECT NISHI Sodium Bicarbonate 150 meq/ (Dextrose) 1,150 mls @ 125 mls/hr IV DIRECT NISHI Ceftriaxone Sodium (Rocephin/Ns 2 Gm/100 Ml) 2 gm in 100 mls @ 200 mls/hr IV Q24H NISHI; Protocol Morphine Sulfate (Morphine 2 Mg/1 Ml Inj) 2 mg IV Q4H PRN PRN Reason: Pain, Moderate (4-6) Morphine Sulfate (Morphine 4 Mg/1 Ml Inj) 4 mg IV Q4H PRN PRN Reason: Pain , Severe (7-10) Ondansetron HCl (Ondansetron 4 Mg/2 Ml Inj) 4 mg IV Q8H PRN PRN Reason: Nausea And Vomiting Pantoprazole Sodium (Pantoprazole 40 Mg Inj) 40 mg IV BID NISHI Sodium Chloride (Sodium Chloride 0.9% 10 Ml Flush Syringe) 10 ml IV BID NISHI Sodium Chloride (Sodium Chloride 0.9% 10 Ml Flush Syringe) 10 ml IV PRN PRN PRN Reason: LINE FLUSH Review of Systems - Review of Systems All systems: negative (10 Systems reviewed and negative except as mentioned abo ve in the history of present illness) Exam - Constitutional Vital Signs: Temp Pulse Resp BP Pulse Ox 97.9 F 104 H 22 129/87 100 01/26/22 18:54 01/27/22 00:45 01/27/22 00:45 01/27/22 00:45 01/27/22 00:45 General appearance: no acute distress - EENT Eyes: EOM intact ENT: hearing intact - Neck Neck: supple - Respiratory Respiratory effort: normal - Cardiovascular Rhythm: other (Tachycardic) - Gastrointestinal General gastrointestinal: Present: soft, tender - Integumentary Integumentary: Present: dry - Musculoskeletal Musculoskeletal: normal (No crepitus on chest exam) - Neurologic Neurological: alert and oriented x3 - Psychiatric Psychiatric: appropriate mood/affect - Labs CBC & Chem 7: 01/26/22 12:25 01/26/22 23:19 Lab Results: Laboratory Results - last 24 hr 01/26/22 01/26/22 01/26/22 12:25 12:57 12:57 WBC 10.9 RBC 4.70 Hgb 13.0 Hct 42.0 MCV 90 MCH 28 MCHC 31 RDW 19.4 H Plt Count 429 D-Dimer ABG pH ABG pCO2 ABG pO2 ABG HCO3 ABG O2 Saturation ABG O2 Content ABG Base Excess ABG Hemoglobin ABG Carboxyhemoglobin ABG Methemoglobin Oxyhemoglobin FiO2 Sodium 134 L Potassium 5.0 Chloride 93.6 L Carbon Dioxide 8 L* Anion Gap 37 BUN 7 Creatinine 0.8 Estimated GFR > 60 BUN/Creatinine Ratio 9 Glucose 143 H Lactic Acid Calcium 10.4 H Total Bilirubin 0.50 AST 35 ALT 18 Alkaline Phosphatase 71 Total Creatine Kinase Troponin T < 0.010 NT-Pro-B Natriuret Pep 24.98 Total Protein 9.9 H Albumin 7.2 H Albumin/Globulin Ratio 2.7 Lipase HCG, Qual Urine Color Urine Turbidity Specific [place] (Man) Ur Protein (Man) Ur Ketones (Man) Ur Nitrite (Man) Ur Reducing Substances Urine Bilirubin (Man) Urine Ictotest Leukocyte Esterase (Man) Urine WBC (Auto) Urine RBC (Auto) U Epithel Cells (Auto) Urine RBC (Manual) Hyaline Casts Granular Casts Urine Mucus Urine Opiates Screen Urine Methadone Screen Ur Barbiturates Screen Ur Phencyclidine Scrn Ur Amphetamines Screen U Benzodiazepines Scrn Urine Cocaine Screen U Marijuana (THC) Screen Drugs of Abuse Note Plasma/Serum Alcohol 01/26/22 01/26/22 01/26/22 12:57 13:47 16:06 WBC RBC Hgb Hct MCV MCH MCHC RDW Plt Count D-Dimer ABG pH ABG pCO2 ABG pO2 ABG HCO3 ABG O2 Saturation ABG O2 Content ABG Base Excess ABG Hemoglobin ABG Carboxyhemoglobin ABG Methemoglobin Oxyhemoglobin FiO2 Sodium Potassium Chloride Carbon Dioxide Anion Gap BUN Creatinine Estimated GFR BUN/Creatinine Ratio Glucose Lactic Acid Calcium Total Bilirubin AST ALT Alkaline Phosphatase Total Creatine Kinase Troponin T NT-Pro-B Natriuret Pep Total Protein Albumin Albumin/Globulin Ratio Lipase HCG, Qual Negative Urine Color [place] Urine Turbidity Cloudy Specific [place] (Man) 1.030 Ur Protein (Man) 4+ Ur Ketones (Man) 4+ Ur Nitrite (Man) Negative Ur Reducing Substances Not Reportable Urine Bilirubin (Man) Negative Urine Ictotest Not Reportable Leukocyte Esterase (Man) Negative Urine WBC (Auto) 1.0 Urine RBC (Auto) 162.0 U Epithel Cells (Auto) 4.0 Urine RBC (Manual) 5+ Hyaline Casts 40 Granular Casts 2 Urine Mucus 1+ Urine Opiates Screen Negative Urine Methadone Screen Negative Ur Barbiturates Screen Negative Ur Phencyclidine Scrn Negative Ur Amphetamines Screen Negative U Benzodiazepines Scrn Negative Urine Cocaine Screen Negative U Marijuana (THC) Screen Positive Drugs of Abuse Note Disclamer Plasma/Serum Alcohol 01/26/22 01/26/22 01/26/22 16:46 16:46 16:46 WBC RBC Hgb Hct MCV MCH MCHC RDW Plt Count D-Dimer ABG pH ABG pCO2 ABG pO2 ABG HCO3 ABG O2 Saturation ABG O2 Content ABG Base Excess ABG Hemoglobin ABG Carboxyhemoglobin ABG Methemoglobin Oxyhemoglobin FiO2 Sodium Potassium Chloride Carbon Dioxide Anion Gap BUN Creatinine Estimated GFR BUN/Creatinine Ratio Glucose Lactic Acid 2.30 H* Calcium Total Bilirubin AST ALT Alkaline Phosphatase Total Creatine Kinase 57 Troponin T NT-Pro-B Natriuret Pep Total Protein Albumin Albumin/Globulin Ratio Lipase 877 H HCG, Qual Urine Color Urine Turbidity Specific [place] (Man) Ur Protein (Man) Ur Ketones (Man) Ur Nitrite (Man) Ur Reducing Substances Urine Bilirubin (Man) Urine Ictotest Leukocyte Esterase (Man) Urine WBC (Auto) Urine RBC (Auto) U Epithel Cells (Auto) Urine RBC (Manual) Hyaline Casts Granular Casts Urine Mucus Urine Opiates Screen Urine Methadone Screen Ur Barbiturates Screen Ur Phencyclidine Scrn Ur Amphetamines Screen U Benzodiazepines Scrn Urine Cocaine Screen U Marijuana (THC) Screen Drugs of Abuse Note Plasma/Serum Alcohol 01/26/22 01/26/22 01/26/22 16:46 19:50 23:19 WBC RBC Hgb Hct MCV MCH MCHC RDW Plt Count D-Dimer 880.44 H ABG pH 7.170 L* ABG pCO2 11.3 ABG pO2 186.6 H ABG HCO3 4.0 L ABG O2 Saturation 99.1 H ABG O2 Content 16.2 ABG Base Excess -22.1 L ABG Hemoglobin 11.6 L ABG Carboxyhemoglobin 1.3 ABG Methemoglobin 0.6 Oxyhemoglobin 97.1 FiO2 32 Sodium Potassium Chloride Carbon Dioxide Anion Gap BUN Creatinine Estimated GFR BUN/Creatinine Ratio Glucose Lactic Acid 1.10 Calcium Total Bilirubin AST ALT Alkaline Phosphatase Total Creatine Kinase Troponin T NT-Pro-B Natriuret Pep Total Protein Albumin Albumin/Globulin Ratio Lipase HCG, Qual Urine Color Urine Turbidity Specific [place] (Man) Ur Protein (Man) Ur Ketones (Man) Ur Nitrite (Man) Ur Reducing Substances Urine Bilirubin (Man) Urine Ictotest Leukocyte Esterase (Man) Urine WBC (Auto) Urine RBC (Auto) U Epithel Cells (Auto) Urine RBC (Manual) Hyaline Casts Granular Casts Urine Mucus Urine Opiates Screen Urine Methadone Screen Ur Barbiturates Screen Ur Phencyclidine Scrn Ur Amphetamines Screen U Benzodiazepines Scrn Urine Cocaine Screen U Marijuana (THC) Screen Drugs of Abuse Note Plasma/Serum Alcohol 01/26/22 01/26/22 01/26/22 23:19 23:19 23:30 WBC RBC Hgb Hct MCV MCH MCHC RDW Plt Count D-Dimer ABG pH 7.222 L ABG pCO2 17.1 ABG pO2 132.4 H ABG HCO3 6.9 L ABG O2 Saturation 98.4 ABG O2 Content 15.2 ABG Base Excess -18.7 L ABG Hemoglobin 11.0 L ABG Carboxyhemoglobin 1.3 ABG Methemoglobin 0.7 Oxyhemoglobin 96.4 FiO2 21 Sodium 136 L Potassium 5.2 H Chloride 104.4 Carbon Dioxide 8 L* Anion Gap 29 BUN 8 Creatinine 0.9 Estimated GFR > 60 BUN/Creatinine Ratio 9 Glucose 210 H Lactic Acid Calcium 8.6 D Total Bilirubin 0.40 AST 20 ALT 11 Alkaline Phosphatase 51 Total Creatine Kinase Troponin T NT-Pro-B Natriuret Pep Total Protein 7.8 D Albumin 4.9 Albumin/Globulin Ratio 1.7 Lipase 1229 H HCG, Qual Urine Color Urine Turbidity Specific [place] (Man) Ur Protein (Man) Ur Ketones (Man) Ur Nitrite (Man) Ur Reducing Substances Urine Bilirubin (Man) Urine Ictotest Leukocyte Esterase (Man) Urine WBC (Auto) Urine RBC (Auto) U Epithel Cells (Auto) Urine RBC (Manual) Hyaline Casts Granular Casts Urine Mucus Urine Opiates Screen Urine Methadone Screen Ur Barbiturates Screen Ur Phencyclidine Scrn Ur Amphetamines Screen U Benzodiazepines Scrn Urine Cocaine Screen U Marijuana (THC) Screen Drugs of Abuse Note Plasma/Serum Alcohol < 0.01 Assessment and Plan Clinically suspect patient developed acute pancreatitis due to the increased alcohol intake that she had recently precipitated the acute nausea vomiting which caused the Boerhaave syndrome Patient does appear to have fluids ordered but they are not running. Spoke with the nurse, we will give the patient a bolus and then start her on fluids. Continue broad spectrum Abx and NPO status for at least the next few days, will continue to monitor Recommend starting PPN to ensure nutritional support Will continue to monitor Patient clinically does not require surgical intervention as of yet - Patient Problems (1) Acute alcoholic pancreatitis Current Visit: Yes Status: Acute (2) Boerhaave syndrome Current Visit: Yes Status: Acute (3) Nausea & vomiting Current Visit: Yes Status: Acute (4) Pneumomediastinum Current Visit: Yes Status: Acute
[2022-01-27] MEDS ORDERED: IPRATROPIUM/ALBUTEROL SULFATE 3 ML AMPUL.NEB IH SCH (08:00)
[2022-01-27] MEDS ORDERED: SODIUM CHLORIDE 0.9% 1000 ML 1,000 ML IV ONE (09:00)
[2022-01-27 10:23] LABS: ABG Base Excess -13.9 mmol/L (-2.0-3.0); ABG HCO3 10.8 mmol/L (20.0-26.0); ABG Methemoglobin 0.6 % (0.0-1.5); ABG Oxygen Saturation 98.4 % (95.0-99.0); ABG PCO2 22.1 mm Hg; ABG PH 7.306 pH Units (7.350-7.450); ABG PO2 125.1 mm Hg (80.0-90.0)
[2022-01-27] MEDS: PANTOPRAZOLE 40 MG INJ IV SCH ×2 (10:34→23:26)
[2022-01-27] MEDS: cefTRIAXone/NS 2 GM/100 ML 2 GM/100 ML BAG IV SCH (10:36)
--- NOTE | 2022-01-27 10:54 | Electrocardiograph Report ---
[facility] Test Date: 2022-01-26 Test Time: 13:07:13 Pat Name: JACKIE BARBER Department: Room: A263 Gender: F Automobile Assembler: ADALGISA : 1995 Requested By: KEITH ARMSTRONG Order Number: [id number] Reading MD: Lazaro Sesay Measurements Intervals [place] Rate: 124 P: 80 [place]: 118 QRS: 60 QRSD: 76 T: 64 QT: 364 QTc: 523 Interpretive Statements Sinus tachycardia LAE, consider biatrial enlargement Prolonged QT interval No previous ECG available for comparison Electronically Signed On 01-27-2022 10:53:55 EDT by Lazaro Sesay
[2022-01-27] MEDS ORDERED: LACTATED RINGERS 1,000 ML IV ONE (11:30)
[2022-01-27] MEDS: D5W/0.45% NACL 1,000 ML IV SCH (12:32)
--- NOTE | 2022-01-27 13:15 | Consultation ---
History of Present Illness - Reason for Consult Consult date: 01/27/22 Requesting physician: HERMELINDO HAWK - History of Present Illness 26 y/o f with nausea, vomiting and abdominal pain. Past History Past Medical History: other (Anxiety) Past Surgical History: Other ( x2) Social history: alcohol abuse Family history: hypertension, other (Sister with Crohn's disease) Medications and Allergies Allergies Allergy/AdvReac Type Severity Reaction Status Date / Time No Known Allergies Allergy Verified 01/26/22 12:47 Active Meds: Active Medications Acetaminophen (Acetaminophen 325 Mg Tab) 650 mg PO Q4H PRN PRN Reason: Pain MILD(1-3)/Fever >100.5/OLIVER Ceftriaxone Sodium (Rocephin/Ns 2 Gm/100 Ml) 2 gm in 100 mls @ 200 mls/hr IV Q24H NISHI; Protocol Dextrose/Sodium Chloride (D5/0.45ns) 1,000 mls @ 75 mls/hr IV DIRECT NISHI Morphine Sulfate (Morphine 2 Mg/1 Ml Inj) 2 mg IV Q4H PRN PRN Reason: Pain, Moderate (4-6) Morphine Sulfate (Morphine 4 Mg/1 Ml Inj) 4 mg IV Q4H PRN PRN Reason: Pain , Severe (7-10) Ondansetron HCl (Ondansetron 4 Mg/2 Ml Inj) 4 mg IV Q8H PRN PRN Reason: Nausea And Vomiting Pantoprazole Sodium (Pantoprazole 40 Mg Inj) 40 mg IV BID NISHI Sodium Chloride (Sodium Chloride 0.9% 10 Ml Flush Syringe) 10 ml IV BID NISHI Sodium Chloride (Sodium Chloride 0.9% 10 Ml Flush Syringe) 10 ml IV PRN PRN PRN Reason: LINE FLUSH Exam - Constitutional Vitals: Temp Pulse Resp BP Pulse Ox 97.9 F 104 H 22 129/87 100 01/26/22 18:54 01/27/22 00:45 01/27/22 00:45 01/27/22 00:45 01/27/22 10:05 Results - Labs CBC & Chem 7: 01/26/22 12:25 01/26/22 23:19 Labs: Abnormal lab results 01/26/22 01/26/22 01/26/22 Range/Units 12:25 12:57 16:46 RDW 19.4 H (13.2-15.2) % D-Dimer (0-234) ng/mlDDU ABG pH (7.350-7.450) pH Units ABG pO2 (80.0-90.0) mm Hg ABG HCO3 (20.0-26.0) mmol/L ABG O2 Saturation (95.0-99.0) % ABG Base Excess (-2.0-3.0) mmol/L ABG Hemoglobin (12.0-16.0) gm/dl Sodium 134 L (137-145) mmol/L Potassium (3.6-5.0) mmol/L Chloride 93.6 L (98-107) mmol/L Carbon Dioxide 8 L* (22-30) mmol/L Glucose 143 H (65-100) mg/dL Lactic Acid 2.30 H* (0.7-2.0) mmol/L Calcium 10.4 H (8.4-10.2) mg/dL Total Protein 9.9 H (6.3-8.2) g/dL Albumin 7.2 H (3.9-5) g/dL Lipase (13-60) units/L 01/26/22 01/26/22 01/26/22 Range/Units 16:46 16:46 19:50 RDW (13.2-15.2) % D-Dimer 880.44 H (0-234) ng/mlDDU ABG pH 7.170 L* (7.350-7.450) pH Units ABG pO2 186.6 H (80.0-90.0) mm Hg ABG HCO3 4.0 L (20.0-26.0) mmol/L ABG O2 Saturation 99.1 H (95.0-99.0) % ABG Base Excess -22.1 L (-2.0-3.0) mmol/L ABG Hemoglobin 11.6 L (12.0-16.0) gm/dl Sodium (137-145) mmol/L Potassium (3.6-5.0) mmol/L Chloride (98-107) mmol/L Carbon Dioxide (22-30) mmol/L Glucose (65-100) mg/dL Lactic Acid (0.7-2.0) mmol/L Calcium (8.4-10.2) mg/dL Total Protein (6.3-8.2) g/dL Albumin (3.9-5) g/dL Lipase 877 H (13-60) units/L 01/26/22 01/26/22 01/27/22 Range/Units 23:19 23:30 10:05 RDW (13.2-15.2) % D-Dimer (0-234) ng/mlDDU ABG pH 7.222 L 7.306 L (7.350-7.450) pH Units ABG pO2 132.4 H 125.1 H (80.0-90.0) mm Hg ABG HCO3 6.9 L 10.8 L (20.0-26.0) mmol/L ABG O2 Saturation (95.0-99.0) % ABG Base Excess -18.7 L -13.9 L (-2.0-3.0) mmol/L ABG Hemoglobin 11.0 L 9.5 L (12.0-16.0) gm/dl Sodium 136 L (137-145) mmol/L Potassium 5.2 H (3.6-5.0) mmol/L Chloride (98-107) mmol/L Carbon Dioxide 8 L* (22-30) mmol/L Glucose 210 H (65-100) mg/dL Lactic Acid (0.7-2.0) mmol/L Calcium (8.4-10.2) mg/dL Total Protein (6.3-8.2) g/dL Albumin (3.9-5) g/dL Lipase 1229 H (13-60) units/L Assessment and Plan 26 y/o female, with metabolic acidosis, elevated lipase and abdominal pain 1. Appreciate GI consult. Continue NPO state. Suggest abdominal ultrasound to consider looking for gallstones. Will check ETOH level. Repeat Lipase tomorrow 2. Severe metabolic acidosis of unknown etiology. Has improved with fluids alone. Need to consider checking ETOH Level. Check serum osms as well. Patient apparently is a drinker (methanol, ethylene glycol?, other drugs). Follow up repeat labs 3. Patient clinically is improved compared to arrival. If repeat labs better (ABG already done and improved) can consider transfer to floor. She is an [facility] overflow.
[2022-01-27 17:59] LABS: Basophils % (Auto) 0.2 % (0.0-1.8); Eosinophils % (Auto) 0.3 % (0.0-4.3); Hematocrit 29.3 % (30.3-42.9); Hemoglobin 9.2 gm/dl (10.1-14.3); Lymphocytes # (Auto) 0.5 K/mm3 (1.2-5.4); Lymphocytes % (Auto) 11.8 % (13.4-35.0); Mean Corpuscular HGB Conc 31 % (30-34); Mean Corpuscular Volume 88 fl (79-97); Monocytes # (Auto) 0.4 K/mm3 (0.0-0.8); Monocytes % (Auto) 8.8 % (0.0-7.3); Platelet Count 282 K/mm3 (140-440); Red Blood Count 3.34 M/mm3 (3.65-5.03)
[2022-01-27 18:02] LABS: Alanine Aminotransferase 9 units/L (7-56); Albumin 3.8 g/dL (3.9-5); Blood Urea Nitrogen 4 mg/dL (7-17); Calcium 8.6 mg/dL (8.4-10.2); Hemolysis Index 226
[2022-01-27 18:03] LABS: BUN/Creatinine Ratio 10
--- NOTE | 2022-01-27 18:14 | Progress Note ---
History Interval history: This is a 26-year-old female with EtOH abuse and anxiety who presents to the emergency department 01/26 for evaluation of nausea and vomiting, epigastric, right upper quadrant, right lower quadrant pain, diarrhea and dry cartilage stools for the past 4 days with inability to tolerate p.o. intake. Work-up in the emergency department included a CT chest which showed a small lower posterior Pneumomediastinum minimal retrocrural gas, no evidence of esophageal injury with no extravasation seen and no source of the small amount of air identified, abdomen/pelvis CT with contrast showed small pneumomediastinum with a small amount of gas extending to the right retrocrural space, in view of history of vomiting Boerhaave syndrome be considered, VQ scan showed very low probability of pulmonary embolism and CT chest showed mild pneumomediastinum related to lower esophagus. Work-up in the emergency department revealed acidosis on ABG with pH of 7.1, severe metabolic acidosis with CO2 of 8, lactic acidosis at 2.3, elevated lipase at 877 and hyperkalemia at 5.2. Of note UDS was positive for marijuana. ED attempted to transfer patient however was unable to and patient was ultimately started on a D5 bicarbonate drip and admitted to [facility] with consults to GI and CCM. Hospital course to date: 01/27: Patient given normal saline and LR boluses, continued on D5 half-normal saline. EtOH level and abdominal ultrasound ordered. Neuro: ETOH abuse -Plasma alcohol level less than 0.01 -Initiate CIWA protocol when needed -As needed analgesia -Reorientation as needed -Maintain sleep-wake cycle Cardiac: NAD -Blood pressure monitoring per protocol Respiratory: Respiratory acidosis -S/p sodium bicarb IV push -Serum bicarbonate drip -Currently on room air -SPO2 monitoring per protocol -Pulmonary hygiene GI: Acute pancreatitis, Boerhaave syndrome -GI consulted, appreciate recommendations -N.p.o. -PPI -MIVF -Repeat lipase in a.m. -Abdominal ultrasound pending : High anion gap metabolic acidosis, hyperkalemia -CCM consulted, appreciate recommendations -Monitor intake and output -Renally dose medications -Avoid nephrotoxic medications -Sodium bicarbonate drip -Trend BMP ID: SIRS -Presented with tachycardia, lactic acidosis -Antibiotic therapy with Rocephin -Monitor WBC and temperature curve Endo: NAD -Avoid hypoglycemia -Accu-Cheks every 6 while n.p.o. Heme: Elevated D-dimer -VQ scan with very low probability of pulm embolism -Trend CBC -Transfuse hemoglobin less than 7 -SCDs to BLE while in bed The high probability of a clinically significant, sudden or life threatening deterioration of the [GI/renal] system(s) required my full and direct attention, intervention and personal management. The aggregate critical care time was [60] minutes. This time is in addition to time spent performing reported procedures but includes the following: [x] Data Review and interpretation [x] Patient assessment and monitoring of vital signs [x] Documentation [x] Medication orders and management Hospitalist Physical - Constitutional Vitals: Temp Pulse Resp BP Pulse Ox 97.9 F 94 H 18 109/77 100 01/26/22 18:54 01/27/22 13:30 01/27/22 13:30 01/27/22 13:30 01/27/22 13:30 General appearance: Present: no acute distress, well-nourished HEART Score - HEART Score Troponin: Troponin T < 0.010 ng/mL (0.00-0.029) 01/26/22 12:57 Results - Labs CBC & Chem 7: 01/27/22 17:25 01/27/22 17:25 Labs: Laboratory Last Values WBC 4.6 K/mm3 (4.5-11.0) 01/27/22 17:25 RBC 3.34 M/mm3 (3.65-5.03) L 01/27/22 17:25 Hgb 9.2 gm/dl (10.1-14.3) L D 01/27/22 17:25 Hct 29.3 % (30.3-42.9) L D 01/27/22 17:25 MCV 88 fl (79-97) 01/27/22 17:25 MCH 28 pg (28-32) 01/27/22 17:25 MCHC 31 % (30-34) 01/27/22 17:25 RDW 19.0 % (13.2-15.2) H 01/27/22 17:25 Plt Count 282 K/mm3 (140-440) 01/27/22 17:25 Lymph % (Auto) 11.8 % (13.4-35.0) L 01/27/22 17:25 [place] % (Auto) 8.8 % (0.0-7.3) H 01/27/22 17:25 Eos % (Auto) 0.3 % (0.0-4.3) 01/27/22 17:25 Baso % (Auto) 0.2 % (0.0-1.8) 01/27/22 17:25 Lymph # (Auto) 0.5 K/mm3 (1.2-5.4) L 01/27/22 17:25 [place] # (Auto) 0.4 K/mm3 (0.0-0.8) 01/27/22 17:25 Eos # (Auto) 0.0 K/mm3 (0.0-0.4) 01/27/22 17:25 Baso # (Auto) 0.0 K/mm3 (0.0-0.1) 01/27/22 17:25 Seg Neutrophils % 78.9 % (40.0-70.0) H 01/27/22 17:25 Seg Neutrophils # 3.6 K/mm3 (1.8-7.7) 01/27/22 17:25 D-Dimer 880.44 ng/mlDDU (0-234) H 01/26/22 16:46 ABG pH 7.306 pH Units (7.350-7.450) L 01/27/22 10:05 ABG pCO2 22.1 mm Hg 01/27/22 10:05 ABG pO2 125.1 mm Hg (80.0-90.0) H 01/27/22 10:05 ABG HCO3 10.8 mmol/L (20.0-26.0) L 01/27/22 10:05 ABG O2 Saturation 98.4 % (95.0-99.0) 01/27/22 10:05 ABG O2 Content 13.1 (0.0-44) 01/27/22 10:05 ABG Base Excess -13.9 mmol/L (-2.0-3.0) L 01/27/22 10:05 ABG Hemoglobin 9.5 gm/dl (12.0-16.0) L 01/27/22 10:05 ABG Carboxyhemoglobin 1.6 % (0.0-5.0) 01/27/22 10:05 ABG Methemoglobin 0.6 % (0.0-1.5) 01/27/22 10:05 Oxyhemoglobin 96.2 % (95.0-99.0) 01/27/22 10:05 FiO2 21 % 01/27/22 10:05 Sodium 135 mmol/L (137-145) L 01/27/22 17:25 Potassium 4.6 mmol/L (3.6-5.0) 01/27/22 17:25 Chloride 103.3 mmol/L (98-107) 01/27/22 17:25 Carbon Dioxide 15 mmol/L (22-30) L D 01/27/22 17:25 Anion Gap 21 mmol/L 01/27/22 17:25 BUN 4 mg/dL (7-17) L 01/27/22 17:25 Creatinine 0.4 mg/dL (0.6-1.2) L D 01/27/22 17:25 Estimated GFR > 60 ml/min 01/27/22 17:25 BUN/Creatinine Ratio 10 % 01/27/22 17:25 Glucose 128 mg/dL (65-100) H 01/27/22 17:25 Lactic Acid 1.10 mmol/L (0.7-2.0) 01/26/22 23:19 Calcium 8.6 mg/dL (8.4-10.2) 01/27/22 17:25 Total Bilirubin 0.30 mg/dL (0.1-1.2) 01/27/22 17:25 AST 33 units/L (5-40) 01/27/22 17:25 ALT 9 units/L (7-56) 01/27/22 17:25 Alkaline Phosphatase 36 units/L (35-129) 01/27/22 17:25 Total Creatine Kinase 57 units/L (30-135) 01/26/22 16:46 Troponin T < 0.010 ng/mL (0.00-0.029) 01/26/22 12:57 NT-Pro-B Natriuret Pep 24.98 pg/mL (0-450) 01/26/22 12:57 Total Protein 6.2 g/dL (6.3-8.2) L D 01/27/22 17:25 Albumin 3.8 g/dL (3.9-5) L 01/27/22 17:25 Albumin/Globulin Ratio 1.6 % 01/27/22 17:25 Lipase 1229 units/L (13-60) H 01/26/22 23:19 HCG, Qual Negative (Negative) 01/26/22 12:57 Urine Color [place] (Yellow) 01/26/22 13:47 Urine Turbidity Cloudy (Clear) 01/26/22 13:47 Specific [place] (Man) 1.030 (1.003-1.030) 01/26/22 13:47 Ur Protein (Man) 4+ mg/dL (Negative) 01/26/22 13:47 Ur Ketones (Man) 4+ (Negative) 01/26/22 13:47 Ur Nitrite (Man) Negative (Negative) 01/26/22 13:47 Ur Reducing Substances Not Reportable 01/26/22 13:47 Urine Bilirubin (Man) Negative (Negative) 01/26/22 13:47 Urine Ictotest Not Reportable 01/26/22 13:47 Leukocyte Esterase (Man) Negative (Negative) 01/26/22 13:47 Urine WBC (Auto) 1.0 /HPF (0.0-6.0) 01/26/22 13:47 Urine RBC (Auto) 162.0 /HPF (0.0-6.0) 01/26/22 13:47 U Epithel Cells (Auto) 4.0 /HPF (0-13.0) 01/26/22 13:47 Urine RBC (Manual) 5+ (Negative) 01/26/22 13:47 Hyaline Casts 40 /LPF 01/26/22 13:47 Granular Casts 2 /LPF 01/26/22 13:47 Urine Mucus 1+ /HPF 01/26/22 13:47 Urine Opiates Screen Negative 01/26/22 16:06 Urine Methadone Screen Negative 01/26/22 16:06 Ur Barbiturates Screen Negative 01/26/22 16:06 Ur Phencyclidine Scrn Negative 01/26/22 16:06 Ur Amphetamines Screen Negative 01/26/22 16:06 U Benzodiazepines Scrn Negative 01/26/22 16:06 Urine Cocaine Screen Negative 01/26/22 16:06 U Marijuana (THC) Screen Positive 01/26/22 16:06 Drugs of Abuse Note Disclamer 01/26/22 16:06 Plasma/Serum Alcohol < 0.01 % (0-0.07) 01/26/22 23:19 Coronavirus (PCR) Negative (Negative) 01/27/22 08:56 Active Medications - Current Medications Current Medications: Generic Name Dose Route Start Last Admin Trade Name Freq PRN Reason Stop Dose Admin Acetaminophen 650 mg 01/27/22 03:31 Acetaminophen 325 Mg Tab PO Q4H PRN Pain MILD(1-3)/Fever >100.5/OLIVER Ceftriaxone Sodium 2 gm in 100 mls @ 200 mls/hr 01/27/22 04:00 01/27/22 10:36 Rocephin/Ns 2 Gm/100 Ml IV 200 mls/hr Q24H NISHI Administration Protocol Dextrose/Sodium Chloride 1,000 mls @ 75 mls/hr 01/27/22 12:00 01/27/22 12:32 D5/0.45ns IV 75 mls/hr DIRECT NISHI Administration Morphine Sulfate 2 mg 01/27/22 03:31 Morphine 2 Mg/1 Ml Inj IV Q4H PRN Pain, Moderate (4-6) Morphine Sulfate 4 mg 01/27/22 03:31 Morphine 4 Mg/1 Ml Inj IV Q4H PRN Pain , Severe (7-10) Ondansetron HCl 4 mg 01/27/22 03:31 Ondansetron 4 Mg/2 Ml Inj IV Q8H PRN Nausea And Vomiting Pantoprazole Sodium 40 mg 01/27/22 10:00 01/27/22 10:34 Pantoprazole 40 Mg Inj IV 40 mg BID NISHI Administration Sodium Chloride 10 ml 01/27/22 10:00 01/27/22 10:32 Sodium Chloride 0.9% 10 Ml Flush Syringe IV 10 ml BID NISHI Administration Sodium Chloride 10 ml 01/27/22 03:31 Sodium Chloride 0.9% 10 Ml Flush Syringe IV PRN PRN LINE FLUSH
[2022-01-27 23:49] LABS: Blood Urea Nitrogen 3 mg/dL (7-17); Calcium 8.9 mg/dL (8.4-10.2); Hemolysis Index 14
[2022-01-28 00:02] LABS: BUN/Creatinine Ratio 8
[2022-01-28 05:35] LABS: Basophils % (Auto) 0.5 % (0.0-1.8); Hematocrit 31.1 % (30.3-42.9); Hemoglobin 10.1 gm/dl (10.1-14.3); Lymphocytes # (Auto) 0.9 K/mm3 (1.2-5.4); Lymphocytes % (Auto) 19.7 % (13.4-35.0); Mean Corpuscular HGB Conc 32 % (30-34); Mean Corpuscular Volume 86 fl (79-97); Monocytes # (Auto) 0.3 K/mm3 (0.0-0.8); Monocytes % (Auto) 6.9 % (0.0-7.3); Red Blood Count 3.64 M/mm3 (3.65-5.03); Red Cell Distribution Width 18.3 % (13.2-15.2)
[2022-01-28 05:41] LABS: Platelet Count 250 K/mm3 (140-440)
[2022-01-28 06:15] LABS: Blood Urea Nitrogen 2 mg/dL (7-17); Calcium 9.2 mg/dL (8.4-10.2); Hemolysis Index 32
[2022-01-28 06:22] LABS: BUN/Creatinine Ratio 5
[2022-01-28] MEDS ORDERED: LORazepam 2 MG/ML VIAL IV PRN ×2 (07:28)
[2022-01-28] MEDS: D5W/0.45% NACL 1,000 ML IV SCH ×2 (07:29→22:47)
[2022-01-28] MEDS ORDERED: ONDANSETRON 4 MG/2 ML INJ IV PRN (07:29)
[2022-01-28] MEDS: cefTRIAXone/NS 2 GM/100 ML 2 GM/100 ML BAG IV SCH (07:29)
[2022-01-28] MEDS ORDERED: POTASSIUM CHLORIDE 10 MEQ 10 MEQ/100 ML BAG IV SCH (08:00)
[2022-01-28] MEDS ORDERED: POTASSIUM PHOSPHATE 45 MMOL in SODIUM CHLORIDE 0.9% 500 ML 500 ML IV ONE (08:25)
[2022-01-28] MEDS ORDERED: MAGNESIUM SULFATE 4 GM/100 ML BAG IV ONE (08:25)
--- NOTE | 2022-01-28 09:01 | Ultrasound Report ---
Abdominal ultrasound INDICATION: Abdominal pain FINDINGS: Comparison is made with 01/26/2022. Aorta and IVC appear normal. Liver measures 14.9 cm. Smal l amount of abdominal ascites is identified. Right kidney 9.8 cm in left kidney 10.9 cm. Spleen 9.9 c m., Bilateral 4 mm. Pancreatic head is slightly prominent however no well-defined masses seen. There is a lesion within the right hepatic lobe measuring 1.1 x 0.9 x 1.0 cm with increased echogenicity pe ripherally no definite gallbladder wall thickening or pericholecystic fluid. IMPRESSION: 1. Right liver lesion slightly echogenic. Fines could represent meningioma however nonspecific. A fol low-up CT examination three-phase could be performed for further evaluation. 2. Pancreas is slightly prominent however no well-defined masses seen. 3. Left kidney is slightly prominent which could represent dromedullary hump versus underlying lesion . No definite lesion is seen on recent CT Signer Name: Jeremi Paulino MD Signed: 01/28/2022 8:57 AM Workstation Name: [id number]
[2022-01-28] MEDS: PANTOPRAZOLE 40 MG INJ IV SCH ×2 (09:32→22:10)
[2022-01-28] MEDS: ACETAMINOPHEN 325 MG TAB PO PRN ×2 (09:33→17:20)
--- NOTE | 2022-01-28 12:41 | Progress Note ---
Assessment and Plan 26 y/o female, with metabolic acidosis, elevated lipase and abdominal pain 01/28/22: Follow up GI recs. Lipase improved but still elevated. Feed patient. Stable for floor transfer. Still no exact cause for severe metabolic anion gap acidosis 1. Appreciate GI consult. Continue NPO state. Suggest abdominal ultrasound to consider looking for gallstones. Will check ETOH level. Repeat Lipase tomorrow 2. Severe metabolic acidosis of unknown etiology. Has improved with fluids alone. Need to consider checking ETOH Level. Check serum osms as well. Patient apparently is a drinker (methanol, ethylene glycol?, other drugs). F ollow up repeat labs 3. Patient clinically is improved compared to arrival. If repeat labs better (ABG already done and improved) can consider transfer to floor. She is an IMCU overflow. Subjective Date of service: 01/28/22 Interval history: numbers on chemistry better. AG is near normal. Of bicarb drip. Objective - Constitutional Vitals: Vital Signs - 12hr 01/28/22 01/28/22 01/28/22 01:00 02:00 03:00 Temperature Pulse Rate 90 82 83 Pulse Rate [ From Monitor] Respiratory 16 12 17 Rate Blood Pressure 104/71 125/89 112/82 O2 Sat by Pulse 100 100 100 Oximetry 01/28/22 01/28/22 01/28/22 04:00 05:00 06:00 Temperature 99.6 F Pulse Rate 91 H 87 95 H Pulse Rate [ From Monitor] Respiratory 15 17 15 Rate Blood Pressure 121/77 118/86 102/66 O2 Sat by Pulse 100 100 100 Oximetry 01/28/22 01/28/22 01/28/22 07:00 08:00 09:00 Temperature 98.9 F Pulse Rate 90 Pulse Rate [ 97 H From Monitor] Respiratory 16 19 Rate Blood Pressure 116/85 117/85 107/81 O2 Sat by Pulse 100 99 100 Oximetry 01/28/22 01/28/22 10:00 11:00 Temperature Pulse Rate 83 82 Pulse Rate [ From Monitor] Respiratory 16 22 Rate Blood Pressure 106/82 114/76 O2 Sat by Pulse 100 100 Oximetry - Labs CBC & Chem 7: 01/28/22 04:53 01/28/22 04:53 Labs: Abnormal lab results 01/27/22 01/27/22 01/27/22 Range/Units 17:25 17:25 22:41 RBC 3.34 L (3.65-5.03) M/mm3 Hgb 9.2 L D (10.1-14.3) gm/dl Hct 29.3 L D (30.3-42.9) % RDW 19.0 H (13.2-15.2) % Lymph % (Auto) 11.8 L (13.4-35.0) % [place] % (Auto) 8.8 H (0.0-7.3) % Lymph # (Auto) 0.5 L (1.2-5.4) K/mm3 Seg Neutrophils % 78.9 H (40.0-70.0) % Sodium 135 L 134 L (137-145) mmol/L Potassium 3.5 L D (3.6-5.0) mmol/L Carbon Dioxide 15 L D 16 L (22-30) mmol/L BUN 4 L 3 L (7-17) mg/dL Creatinine 0.4 L D 0.4 L (0.6-1.2) mg/dL Glucose 128 H 114 H (65-100) mg/dL POC Glucose (70-105) mg/dL Phosphorus (2.5-4.5) mg/dL Magnesium (1.7-2.3) mg/dL Total Protein 6.2 L D (6.3-8.2) g/dL Albumin 3.8 L (3.9-5) g/dL Lipase (13-60) units/L 01/28/22 01/28/22 01/28/22 Range/Units 00:26 04:53 04:53 RBC 3.64 L (3.65-5.03) M/mm3 Hgb (10.1-14.3) gm/dl Hct (30.3-42.9) % RDW 18.3 H (13.2-15.2) % Lymph % (Auto) (13.4-35.0) % [place] % (Auto) (0.0-7.3) % Lymph # (Auto) 0.9 L (1.2-5.4) K/mm3 Seg Neutrophils % 71.9 H (40.0-70.0) % Sodium 136 L (137-145) mmol/L Potassium 3.4 L (3.6-5.0) mmol/L Carbon Dioxide 17 L (22-30) mmol/L BUN 2 L (7-17) mg/dL Creatinine 0.4 L (0.6-1.2) mg/dL Glucose 109 H (65-100) mg/dL POC Glucose 134 H (70-105) mg/dL Phosphorus (2.5-4.5) mg/dL Magnesium (1.7-2.3) mg/dL Total Protein (6.3-8.2) g/dL Albumin (3.9-5) g/dL Lipase 818 H (13-60) units/L 01/28/22 01/28/22 Range/Units 04:53 06:13 RBC (3.65-5.03) M/mm3 Hgb (10.1-14.3) gm/dl Hct (30.3-42.9) % RDW (13.2-15.2) % Lymph % (Auto) (13.4-35.0) % [place] % (Auto) (0.0-7.3) % Lymph # (Auto) (1.2-5.4) K/mm3 Seg Neutrophils % (40.0-70.0) % Sodium (137-145) mmol/L Potassium (3.6-5.0) mmol/L Carbon Dioxide (22-30) mmol/L BUN (7-17) mg/dL Creatinine (0.6-1.2) mg/dL Glucose (65-100) mg/dL POC Glucose 128 H (70-105) mg/dL Phosphorus 1.70 L (2.5-4.5) mg/dL Magnesium 1.50 L (1.7-2.3) mg/dL Total Protein (6.3-8.2) g/dL Albumin (3.9-5) g/dL Lipase (13-60) units/L Medications & Allergies - Medications Allergies/Adverse Reactions: Allergies No Known Allergies Allergy (Verified 01/26/22 12:47) Active Medications: Generic Name Dose Route Start Last Admin Trade Name Freq PRN Reason Stop Dose Admin Acetaminophen 650 mg 01/27/22 03:31 01/28/22 09:33 Acetaminophen 325 Mg Tab PO 650 mg Q4H PRN Administration Pain MILD(1-3)/Fever >100.5/OLIVER Ceftriaxone Sodium 2 gm in 100 mls @ 200 mls/hr 01/27/22 04:00 01/28/22 07:29 Rocephin/Ns 2 Gm/100 Ml IV 200 mls/hr Q24H NISHI Administration Protocol Dextrose/Sodium Chloride 1,000 mls @ 75 mls/hr 01/27/22 12:00 01/28/22 07:29 D5/0.45ns IV 75 mls/hr DIRECT NISHI Administration Potassium Phosphate 45 mmol/ 515 mls @ 85 mls/hr 01/28/22 08:25 01/28/22 09:25 Sodium Chloride IV 01/28/22 14:28 85 mls/hr ONCE ONE Administration Lorazepam 2 mg 01/28/22 07:28 Lorazepam 2 Mg/Ml Vial IV Q1HR PRN CIWA-Ar 8-15 Lorazepam 4 mg 01/28/22 07:28 Lorazepam 2 Mg/Ml Vial IV Q1HR PRN CIWA-Ar 16-25 Ondansetron HCl 4 mg 01/28/22 07:29 Ondansetron 4 Mg/2 Ml Inj IV Q6H PRN Nausea And Vomiting Pantoprazole Sodium 40 mg 01/27/22 10:00 01/28/22 09:32 Pantoprazole 40 Mg Inj IV 40 mg BID NISHI Administration Sodium Chloride 10 ml 01/27/22 10:00 01/28/22 09:33 Sodium Chloride 0.9% 10 Ml Flush Syringe IV 10 ml BID NISHI Administration Sodium Chloride 10 ml 01/27/22 03:31 Sodium Chloride 0.9% 10 Ml Flush Syringe IV PRN PRN LINE FLUSH HEART Score - HEART Score Troponin: Troponin T < 0.010 ng/mL (0.00-0.029) 01/26/22 12:57
--- NOTE | 2022-01-28 13:34 | Progress Note ---
Assessment and Plan Assessment and plan: Neuro: ETOH abuse -Plasma alcohol level less than 0.01 -CIWA protocol -As needed analgesia -Reorientation as needed -Maintain sleep-wake cycle Cardiac: NAD -Blood pressure monitoring per protocol Respiratory: NAD -S/p sodium bicarb IV push -Serum bicarbonate drip -Currently on room air -SPO2 monitoring per protocol -Pulmonary hygiene GI: Acute pancreatitis, Boerhaave syndrome -CT chest which showed a small lower posterior pneumomediastinum minimal retrocrural gas, no evidence of esophageal injury with no extravasation seen and no source of the small amount of air identified -Abdomen/pelvis CT with contrast showed small pneumomediastinum with a small amount of gas extending to the right retrocrural space, in view of history of vomiting Boerhaave syndrome be considered -CT chest showed mild pneumomediastinum related to lower esophagus. -GI consulted, appreciate recommendations -CLD -PPI -MIVF -lipase trending down -Abdominal ultrasound shows right liver lesion slightly echogenic which could represent meningioma or nonspecific (follow-up CT examination), pancreas is slightly prominent however no well-defined masses seen, left kidney is slightly prominent which could represent dromedullary hump versus underlying lesion, no definition seen on recent CT : Metabolic acidosis, hypokalemia, hypophosphatemia -CCM consulted, appreciate recommendations -Monitor intake and output -Renally dose medications -Avoid nephrotoxic medications -s/p Sodium bicarbonate drip -Replete with K-Phos -Trend BMP ID: SIRS -Presented with tachycardia, lactic acidosis -Antibiotic therapy with Rocephin -Monitor WBC and temperature curve Endo: NAD -Avoid hypoglycemia -Accu-Cheks every 6 while n.p.o. Heme: Elevated D-dimer -VQ scan with very low probability of pulm embolism -Trend CBC -Transfuse hemoglobin less than 7 -SCDs to BLE while in bed The high probability of a clinically significant, sudden or life threatening deterioration of the [GI/renal] system(s) required my full and direct attention, intervention and personal management. The aggregate critical care time was [60] minutes. This time is in addition to time spent performing reported procedures but includes the following: [x] Data Review and interpretation [x] Patient assessment and monitoring of vital signs [x] Documentation [x] Medication orders and management Disposition Plan: 60 Total Time Spent with Patient (Minutes): transfer to floor History Interval history: This is a 26-year-old female with EtOH abuse and anxiety who presents to the emergency department 01/26 for evaluation of nausea and vomiting, epigastric, right upper quadrant, right lower quadrant pain, diarrhea and dry cartilage stools for the past 4 days with inability to tolerate p.o. intake. Work-up in the emergency department included a CT chest which showed a small lower posterior Pneumomediastinum minimal retrocrural gas, no evidence of esophageal injury with no extravasation seen and no source of the small amount of air identified, abdomen/pelvis CT with contrast showed small pneumomediastinum with a small amount of gas extending to the right retrocrural space, in view of history of vomiting Boerhaave syndrome be considered, VQ scan showed very low probability of pulmonary embolism and CT chest showed mild pneumomediastinum related to lower esophagus. Work-up in the emergency department revealed acidosis on ABG with pH of 7.1, severe metabolic acidosis with CO2 of 8, lactic acidosis at 2.3, elevated lipase at 877 and hyperkalemia at 5.2. Of note UDS was positive for marijuana. ED attempted to transfer patient however was unable to and patient was ultimately started on a D5 bicarbonate drip and admitted to IMCU with consults to GI and CCM. Hospital course to date: 01/27: Patient given normal saline and LR boluses, continued on D5 half-normal saline. EtOH level and abdominal ultrasound ordered. 01/28: Patient's lipase better, abdominal ultrasound completed. Patient will be started on diet and transferred to the floor. Hospitalist Physical - Constitutional Vitals: Temp Pulse Resp BP Pulse Ox 98.9 F 82 22 114/76 100 01/28/22 08:00 01/28/22 11:00 01/28/22 11:00 01/28/22 11:00 01/28/22 11:00 General appearance: Present: no acute distress, well-nourished - EENT Eyes: Present: PERRL, EOM intact ENT: hearing intact, clear oral mucosa - Neck Neck: Present: normal ROM - Respiratory Respiratory effort: normal Respiratory: bilateral: CTA - Cardiovascular Rhythm: regular Heart Sounds: Present: S1 & S2. Absent: systolic murmur, diastolic murmur - Extremities Extremities: no ischemia, pulses intact, pulses symmetrical, No edema, normal temperature, normal color Peripheral Pulses: within normal limits - Abdominal General gastrointestinal: soft, non-tender, non-distended, normal bowel sounds - Integumentary Integumentary: Present: warm, dry - Psychiatric Psychiatric: cooperative - Neurologic Neurologic: CNII-XII intact, no focal deficits, moves all extremities - Allied Health Allied health notes reviewed: nursing, RT HEART Score - HEART Score Troponin: Troponin T < 0.010 ng/mL (0.00-0.029) 01/26/22 12:57 Results - Labs CBC & Chem 7: 01/28/22 04:53 01/28/22 04:53 Labs: Laboratory Last Values WBC 4.6 K/mm3 (4.5-11.0) 01/28/22 04:53 RBC 3.64 M/mm3 (3.65-5.03) L 01/28/22 04:53 Hgb 10.1 gm/dl (10.1-14.3) 01/28/22 04:53 Hct 31.1 % (30.3-42.9) 01/28/22 04:53 MCV 86 fl (79-97) 01/28/22 04:53 MCH 28 pg (28-32) 01/28/22 04:53 MCHC 32 % (30-34) 01/28/22 04:53 RDW 18.3 % (13.2-15.2) H 01/28/22 04:53 Plt Count 250 K/mm3 (140-440) 01/28/22 04:53 Lymph % (Auto) 19.7 % (13.4-35.0) 01/28/22 04:53 [place] % (Auto) 6.9 % (0.0-7.3) 01/28/22 04:53 Eos % (Auto) 1.0 % (0.0-4.3) 01/28/22 04:53 Baso % (Auto) 0.5 % (0.0-1.8) 01/28/22 04:53 Lymph # (Auto) 0.9 K/mm3 (1.2-5.4) L 01/28/22 04:53 [place] # (Auto) 0.3 K/mm3 (0.0-0.8) 01/28/22 04:53 Eos # (Auto) 0.0 K/mm3 (0.0-0.4) 01/28/22 04:53 Baso # (Auto) 0.0 K/mm3 (0.0-0.1) 01/28/22 04:53 Seg Neutrophils % 71.9 % (40.0-70.0) H 01/28/22 04:53 Seg Neutrophils # 3.3 K/mm3 (1.8-7.7) 01/28/22 04:53 D-Dimer 880.44 ng/mlDDU (0-234) H 01/26/22 16:46 ABG pH 7.306 pH Units (7.350-7.450) L 01/27/22 10:05 ABG pCO2 22.1 mm Hg 01/27/22 10:05 ABG pO2 125.1 mm Hg (80.0-90.0) H 01/27/22 10:05 ABG HCO3 10.8 mmol/L (20.0-26.0) L 01/27/22 10:05 ABG O2 Saturation 98.4 % (95.0-99.0) 01/27/22 10:05 ABG O2 Content 13.1 (0.0-44) 01/27/22 10:05 ABG Base Excess -13.9 mmol/L (-2.0-3.0) L 01/27/22 10:05 ABG Hemoglobin 9.5 gm/dl (12.0-16.0) L 01/27/22 10:05 ABG Carboxyhemoglobin 1.6 % (0.0-5.0) 01/27/22 10:05 ABG Methemoglobin 0.6 % (0.0-1.5) 01/27/22 10:05 Oxyhemoglobin 96.2 % (95.0-99.0) 01/27/22 10:05 FiO2 21 % 01/27/22 10:05 Sodium 136 mmol/L (137-145) L 01/28/22 04:53 Potassium 3.4 mmol/L (3.6-5.0) L 01/28/22 04:53 Chloride 102.9 mmol/L (98-107) 01/28/22 04:53 Carbon Dioxide 17 mmol/L (22-30) L 01/28/22 04:53 Anion Gap 20 mmol/L 01/28/22 04:53 BUN 2 mg/dL (7-17) L 01/28/22 04:53 Creatinine 0.4 mg/dL (0.6-1.2) L 01/28/22 04:53 Estimated GFR > 60 ml/min 01/28/22 04:53 BUN/Creatinine Ratio 5 % 01/28/22 04:53 Glucose 109 mg/dL (65-100) H 01/28/22 04:53 POC Glucose 128 mg/dL (70-105) H 01/28/22 06:13 Lactic Acid 1.10 mmol/L (0.7-2.0) 01/26/22 23:19 Calcium 9.2 mg/dL (8.4-10.2) 01/28/22 04:53 Phosphorus 1.70 mg/dL (2.5-4.5) L 01/28/22 04:53 Magnesium 1.50 mg/dL (1.7-2.3) L 01/28/22 04:53 Total Bilirubin 0.30 mg/dL (0.1-1.2) 01/27/22 17:25 AST 33 units/L (5-40) 01/27/22 17:25 ALT 9 units/L (7-56) 01/27/22 17:25 Alkaline Phosphatase 36 units/L (35-129) 01/27/22 17:25 Total Creatine Kinase 57 units/L (30-135) 01/26/22 16:46 Troponin T < 0.010 ng/mL (0.00-0.029) 01/26/22 12:57 NT-Pro-B Natriuret Pep 24.98 pg/mL (0-450) 01/26/22 12:57 Total Protein 6.2 g/dL (6.3-8.2) L D 01/27/22 17:25 Albumin 3.8 g/dL (3.9-5) L 01/27/22 17:25 Albumin/Globulin Ratio 1.6 % 01/27/22 17:25 Lipase 818 units/L (13-60) H 01/28/22 04:53 HCG, Qual Negative (Negative) 01/26/22 12:57 Urine Color [place] (Yellow) 01/26/22 13:47 Urine Turbidity Cloudy (Clear) 01/26/22 13:47 Specific [place] (Man) 1.030 (1.003-1.030) 01/26/22 13:47 Ur Protein (Man) 4+ mg/dL (Negative) 01/26/22 13:47 Ur Ketones (Man) 4+ (Negative) 01/26/22 13:47 Ur Nitrite (Man) Negative (Negative) 01/26/22 13:47 Ur Reducing Substances Not Reportable 01/26/22 13:47 Urine Bilirubin (Man) Negative (Negative) 01/26/22 13:47 Urine Ictotest Not Reportable 01/26/22 13:47 Leukocyte Esterase (Man) Negative (Negative) 01/26/22 13:47 Urine WBC (Auto) 1.0 /HPF (0.0-6.0) 01/26/22 13:47 Urine RBC (Auto) 162.0 /HPF (0.0-6.0) 01/26/22 13:47 U Epithel Cells (Auto) 4.0 /HPF (0-13.0) 01/26/22 13:47 Urine RBC (Manual) 5+ (Negative) 01/26/22 13:47 Hyaline Casts 40 /LPF 01/26/22 13:47 Granular Casts 2 /LPF 01/26/22 13:47 Urine Mucus 1+ /HPF 01/26/22 13:47 Urine Opiates Screen Negative 01/26/22 16:06 Urine Methadone Screen Negative 01/26/22 16:06 Ur Barbiturates Screen Negative 01/26/22 16:06 Ur Phencyclidine Scrn Negative 01/26/22 16:06 Ur Amphetamines Screen Negative 01/26/22 16:06 U Benzodiazepines Scrn Negative 01/26/22 16:06 Urine Cocaine Screen Negative 01/26/22 16:06 U Marijuana (THC) Screen Positive 01/26/22 16:06 Drugs of Abuse Note Disclamer 01/26/22 16:06 Plasma/Serum Alcohol < 0.01 % (0-0.07) 01/26/22 23:19 Coronavirus (PCR) Negative (Negative) 01/27/22 08:56 [place]/IV: Voiding Method Toilet Active Medications - Current Medications Current Medications: Generic Name Dose Route Start Last Admin Trade Name Freq PRN Reason Stop Dose Admin Acetaminophen 650 mg 01/27/22 03:31 01/28/22 09:33 Acetaminophen 325 Mg Tab PO 650 mg Q4H PRN Administration Pain MILD(1-3)/Fever >100.5/OLIVER Ceftriaxone Sodium 2 gm in 100 mls @ 200 mls/hr 01/27/22 04:00 01/28/22 07:29 Rocephin/Ns 2 Gm/100 Ml IV 200 mls/hr Q24H NISHI Administration Protocol Dextrose/Sodium Chloride 1,000 mls @ 75 mls/hr 01/27/22 12:00 01/28/22 07:29 D5/0.45ns IV 75 mls/hr DIRECT NISHI Administration Potassium Phosphate 45 mmol/ 515 mls @ 85 mls/hr 01/28/22 08:25 01/28/22 09:25 Sodium Chloride IV 01/28/22 14:28 85 mls/hr ONCE ONE Administration Lorazepam 2 mg 01/28/22 07:28 Lorazepam 2 Mg/Ml Vial IV Q1HR PRN CIWA-Ar 8-15 Lorazepam 4 mg 01/28/22 07:28 Lorazepam 2 Mg/Ml Vial IV Q1HR PRN CIWA-Ar 16-25 Ondansetron HCl 4 mg 01/28/22 07:29 Ondansetron 4 Mg/2 Ml Inj IV Q6H PRN Nausea And Vomiting Pantoprazole Sodium 40 mg 01/27/22 10:00 01/28/22 09:32 Pantoprazole 40 Mg Inj IV 40 mg BID NISHI Administration Sodium Chloride 10 ml 01/27/22 10:00 01/28/22 09:33 Sodium Chloride 0.9% 10 Ml Flush Syringe IV 10 ml BID NISHI Administration Sodium Chloride 10 ml 01/27/22 03:31 Sodium Chloride 0.9% 10 Ml Flush Syringe IV PRN PRN LINE FLUSH
[2022-01-28] MEDS ORDERED: POTASSIUM CHLORIDE ER 20 MEQ TAB PO ONE (13:41)
[2022-01-28] MEDS: K-PHOS NEUTRAL 250 MG TAB PO SCH ×3 (15:40→22:10)
[2022-01-29] MEDS: cefTRIAXone/NS 2 GM/100 ML 2 GM/100 ML BAG IV SCH (04:18)
[2022-01-29 07:40] LABS: Calcium 8.5 mg/dL (8.4-10.2); Hemolysis Index 0
[2022-01-29 07:41] LABS: BUN/Creatinine Ratio 3; Blood Urea Nitrogen < 1 mg/dL (7-17)
--- NOTE | 2022-01-29 08:52 | Progress Note ---
Assessment and Plan Assessment and plan: History Interval history: This is a 26-year-old female with EtOH abuse and anxiety who presents to the emergency department 01/26 for evaluation of nausea and vomiting, epigastric, right upper quadrant, right lower quadrant pain, diarrhea and dry cartilage stools for the past 4 days with inability to tolerate p.o. intake. Work-up in the emergency department included a CT chest which showed a small lower posterior Pneumomediastinum minimal retrocrural gas, no evidence of esophageal injury with no extravasation seen and no source of the small amount of air identified, abdomen/pelvis CT with contrast showed small pneumomediastinum with a small amount of gas extending to the right retrocrural space, in view of history of vomiting Boerhaave syndrome be considered, VQ scan showed very low probability of pulmonary embolism and CT chest showed mild pneumomediastinum related to lower esophagus. Work-up in the emergency department revealed acidosis on ABG with pH of 7.1, severe metabolic acidosis with CO2 of 8, lactic acidosis at 2.3, elevated lipase at 877 and hyperkalemia at 5.2. Of note UDS was positive for marijuana. ED attempted to transfer patient however was unable to and patient was ultimately started on a D5 bicarbonate drip and admitted to IMCU with consults to GI and CCM. Hospital course to date: 01/27: Patient given normal saline and LR boluses, continued on D5 half-normal saline. EtOH level and abdominal ultrasound ordered. 01/28: Patient's lipase better, abdominal ultrasound completed. Patient will be started on diet and transferred to the floor. 01/29: tolerating clear diet well. GI recs noted. Possible d/c in next 24-48 hrs. Replacing potassium this AM. Recheck in PM. Cramping in leg noted, possibly due to electrolytes. Patient also has a prior hx of iron deficiency anemia due to long menstrual cycles which could also be responsible for leg cramps. Hgb is normal for her age/sex and MCV is in normal range. Nevertheless, will order iron study. Assessment and plan: Neuro: ETOH abuse -Plasma alcohol level less than 0.01 -CIWA protocol -As needed analgesia -Reorientation as needed -Maintain sleep-wake cycle Cardiac: NAD -Blood pressure monitoring per protocol Respiratory: NAD -S/p sodium bicarb IV push -Serum bicarbonate drip -Currently on room air -SPO2 monitoring per protocol -Pulmonary hygiene GI: Acute pancreatitis, Boerhaave syndrome -CT chest which showed a small lower posterior pneumomediastinum minimal retrocrural gas, no evidence of esophageal injury with no extravasation seen and no source of the small amount of air identified -Abdomen/pelvis CT with contrast showed small pneumomediastinum with a small amount of gas extending to the right retrocrural space, in view of history of vomiting Boerhaave syndrome be considered -CT chest showed mild pneumomediastinum related to lower esophagus. -GI consulted, appreciate recommendations -CLD -PPI -MIVF -lipase trending down -Abdominal ultrasound shows right liver lesion slightly echogenic which could represent meningioma or nonspecific (follow-up CT examination), pancreas is slightly prominent however no well-defined masses seen, left kidney is slightly prominent which could represent dromedullary hump versus underlying lesion, no definition seen on recent CT : Metabolic acidosis, hypokalemia, hypophosphatemia -CCM consulted, appreciate recommendations -Monitor intake and output -Renally dose medications -Avoid nephrotoxic medications -s/p Sodium bicarbonate drip -Replete with K-Phos -Trend BMP ID: SIRS -Presented with tachycardia, lactic acidosis -Antibiotic therapy with Rocephin -Monitor WBC and temperature curve Endo: NAD -Avoid hypoglycemia -Accu-Cheks every 6 while n.p.o. Heme: Elevated D-dimer -VQ scan with very low probability of pulm embolism -Trend CBC -Transfuse hemoglobin less than 7 -SCDs to BLE while in bed #Advance care planning Disease education conducted, care plan discussed, diagnoses discussed, prognosis discussed, patient is full code, patient acknowledges understanding and agree with care plan, +30 minutes. Time spent: +35 min CPT 23250 History Interval history: Resting comfortably. States she has some cramping in legs. Tolerating diet of clears such as Jell-O well. Hospitalist Physical - Physical exam Narrative exam: General appearance: Present: no acute distress, well-nourished - EENT Eyes: Present: PERRL, EOM intact ENT: hearing intact, clear oral mucosa - Neck Neck: Present: normal ROM - Respiratory Respiratory effort: normal Respiratory: bilateral: CTA - Cardiovascular Rhythm: regular Heart Sounds: Present: S1 & S2. Absent: systolic murmur, diastolic murmur - Extremities Extremities: no ischemia, pulses intact, pulses symmetrical, No edema, normal temperature, normal color Peripheral Pulses: within normal limits - Abdominal General gastrointestinal: soft, non-tender, non-distended, normal bowel sounds - Integumentary Integumentary: Present: warm, dry - Psychiatric Psychiatric: cooperative - Neurologic Neurologic: CNII-XII intact, no focal deficits, moves all extremities - Allied Health Allied health notes reviewed: nursing, RT - Constitutional Vitals: Temp Pulse Resp BP Pulse Ox 98.0 F 82 16 125/86 99 01/28/22 16:56 01/28/22 21:00 01/28/22 21:00 01/28/22 16:56 01/28/22 21:00 General appearance: Present: no acute distress, well-nourished HEART Score - HEART Score Troponin: Troponin T < 0.010 ng/mL (0.00-0.029) 01/26/22 12:57 Results - Labs CBC & Chem 7: 01/28/22 04:53 01/29/22 06:33 Labs: Laboratory Last Values WBC 4.6 K/mm3 (4.5-11.0) 01/28/22 04:53 RBC 3.64 M/mm3 (3.65-5.03) L 01/28/22 04:53 Hgb 10.1 gm/dl (10.1-14.3) 01/28/22 04:53 Hct 31.1 % (30.3-42.9) 01/28/22 04:53 MCV 86 fl (79-97) 01/28/22 04:53 MCH 28 pg (28-32) 01/28/22 04:53 MCHC 32 % (30-34) 01/28/22 04:53 RDW 18.3 % (13.2-15.2) H 01/28/22 04:53 Plt Count 250 K/mm3 (140-440) 01/28/22 04:53 Lymph % (Auto) 19.7 % (13.4-35.0) 01/28/22 04:53 [place] % (Auto) 6.9 % (0.0-7.3) 01/28/22 04:53 Eos % (Auto) 1.0 % (0.0-4.3) 01/28/22 04:53 Baso % (Auto) 0.5 % (0.0-1.8) 01/28/22 04:53 Lymph # (Auto) 0.9 K/mm3 (1.2-5.4) L 01/28/22 04:53 [place] # (Auto) 0.3 K/mm3 (0.0-0.8) 01/28/22 04:53 Eos # (Auto) 0.0 K/mm3 (0.0-0.4) 01/28/22 04:53 Baso # (Auto) 0.0 K/mm3 (0.0-0.1) 01/28/22 04:53 Seg Neutrophils % 71.9 % (40.0-70.0) H 01/28/22 04:53 Seg Neutrophils # 3.3 K/mm3 (1.8-7.7) 01/28/22 04:53 D-Dimer 880.44 ng/mlDDU (0-234) H 01/26/22 16:46 ABG pH 7.306 pH Units (7.350-7.450) L 01/27/22 10:05 ABG pCO2 22.1 mm Hg 01/27/22 10:05 ABG pO2 125.1 mm Hg (80.0-90.0) H 01/27/22 10:05 ABG HCO3 10.8 mmol/L (20.0-26.0) L 01/27/22 10:05 ABG O2 Saturation 98.4 % (95.0-99.0) 01/27/22 10:05 ABG O2 Content 13.1 (0.0-44) 01/27/22 10:05 ABG Base Excess -13.9 mmol/L (-2.0-3.0) L 01/27/22 10:05 ABG Hemoglobin 9.5 gm/dl (12.0-16.0) L 01/27/22 10:05 ABG Carboxyhemoglobin 1.6 % (0.0-5.0) 01/27/22 10:05 ABG Methemoglobin 0.6 % (0.0-1.5) 01/27/22 10:05 Oxyhemoglobin 96.2 % (95.0-99.0) 01/27/22 10:05 FiO2 21 % 01/27/22 10:05 Sodium 138 mmol/L (137-145) 01/29/22 06:33 Potassium 2.9 mmol/L (3.6-5.0) L* 01/29/22 06:33 Chloride 102.4 mmol/L (98-107) 01/29/22 06:33 Carbon Dioxide 23 mmol/L (22-30) 01/29/22 06:33 Anion Gap 16 mmol/L 01/29/22 06:33 BUN < 1 mg/dL (7-17) L 01/29/22 06:33 Creatinine 0.3 mg/dL (0.6-1.2) L 01/29/22 06:33 Estimated GFR > 60 ml/min 01/29/22 06:33 BUN/Creatinine Ratio 3 % 01/29/22 06:33 Glucose 116 mg/dL (65-100) H 01/29/22 06:33 POC Glucose 109 mg/dL (70-105) H 01/29/22 06:05 Lactic Acid 1.10 mmol/L (0.7-2.0) 01/26/22 23:19 Calcium 8.5 mg/dL (8.4-10.2) 01/29/22 06:33 Phosphorus 1.40 mg/dL (2.5-4.5) L 01/29/22 06:33 Magnesium 2.00 mg/dL (1.7-2.3) 01/29/22 06:33 Total Bilirubin 0.30 mg/dL (0.1-1.2) 01/27/22 17:25 AST 33 units/L (5-40) 01/27/22 17:25 ALT 9 units/L (7-56) 01/27/22 17:25 Alkaline Phosphatase 36 units/L (35-129) 01/27/22 17:25 Total Creatine Kinase 57 units/L (30-135) 01/26/22 16:46 Troponin T < 0.010 ng/mL (0.00-0.029) 01/26/22 12:57 NT-Pro-B Natriuret Pep 24.98 pg/mL (0-450) 01/26/22 12:57 Total Protein 6.2 g/dL (6.3-8.2) L D 01/27/22 17:25 Albumin 3.8 g/dL (3.9-5) L 01/27/22 17:25 Albumin/Globulin Ratio 1.6 % 01/27/22 17:25 Lipase 818 units/L (13-60) H 01/28/22 04:53 HCG, Qual Negative (Negative) 01/26/22 12:57 Urine Color [place] (Yellow) 01/26/22 13:47 Urine Turbidity Cloudy (Clear) 01/26/22 13:47 Specific [place] (Man) 1.030 (1.003-1.030) 01/26/22 13:47 Ur Protein (Man) 4+ mg/dL (Negative) 01/26/22 13:47 Ur Ketones (Man) 4+ (Negative) 01/26/22 13:47 Ur Nitrite (Man) Negative (Negative) 01/26/22 13:47 Ur Reducing Substances Not Reportable 01/26/22 13:47 Urine Bilirubin (Man) Negative (Negative) 01/26/22 13:47 Urine Ictotest Not Reportable 01/26/22 13:47 Leukocyte Esterase (Man) Negative (Negative) 01/26/22 13:47 Urine WBC (Auto) 1.0 /HPF (0.0-6.0) 01/26/22 13:47 Urine RBC (Auto) 162.0 /HPF (0.0-6.0) 01/26/22 13:47 U Epithel Cells (Auto) 4.0 /HPF (0-13.0) 01/26/22 13:47 Urine RBC (Manual) 5+ (Negative) 01/26/22 13:47 Hyaline Casts 40 /LPF 01/26/22 13:47 Granular Casts 2 /LPF 01/26/22 13:47 Urine Mucus 1+ /HPF 01/26/22 13:47 Urine Opiates Screen Negative 01/26/22 16:06 Urine Methadone Screen Negative 01/26/22 16:06 Ur Barbiturates Screen Negative 01/26/22 16:06 Ur Phencyclidine Scrn Negative 01/26/22 16:06 Ur Amphetamines Screen Negative 01/26/22 16:06 U Benzodiazepines Scrn Negative 01/26/22 16:06 Urine Cocaine Screen Negative 01/26/22 16:06 U Marijuana (THC) Screen Positive 01/26/22 16:06 Drugs of Abuse Note Disclamer 01/26/22 16:06 Plasma/Serum Alcohol < 0.01 % (0-0.07) 01/26/22 23:19 Coronavirus (PCR) Negative (Negative) 01/27/22 08:56 [place]/IV: Voiding Method Toilet Active Medications - Current Medications Current Medications: Generic Name Dose Route Start Last Admin Trade Name Freq PRN Reason Stop Dose Admin Acetaminophen 650 mg 01/27/22 03:31 01/28/22 17:20 Acetaminophen 325 Mg Tab PO 650 mg Q4H PRN Administration Pain MILD(1-3)/Fever >100.5/OLIVER Ceftriaxone Sodium 2 gm in 100 mls @ 200 mls/hr 01/27/22 04:00 01/29/22 08:02 Rocephin/Ns 2 Gm/100 Ml IV Infused Q24H NISHI Infusion Protocol Dextrose/Sodium Chloride 1,000 mls @ 75 mls/hr 01/27/22 12:00 01/28/22 22:47 D5/0.45ns IV 75 mls/hr DIRECT NISHI Administration Lorazepam 2 mg 01/28/22 07:28 01/28/22 22:55 Lorazepam 2 Mg/Ml Vial IV 2 mg Q1HR PRN Administration CIWA-Ar 8-15 Lorazepam 4 mg 01/28/22 07:28 Lorazepam 2 Mg/Ml Vial IV Q1HR PRN CIWA-Ar 16-25 Ondansetron HCl 4 mg 01/28/22 07:29 Ondansetron 4 Mg/2 Ml Inj IV Q6H PRN Nausea And Vomiting Pantoprazole Sodium 40 mg 01/27/22 10:00 01/28/22 22:10 Pantoprazole 40 Mg Inj IV 40 mg BID NISHI Administration Sodium Chloride 10 ml 01/27/22 10:00 01/28/22 22:11 Sodium Chloride 0.9% 10 Ml Flush Syringe IV 10 ml BID NISHI Administration Sodium Chloride 10 ml 01/27/22 03:31 Sodium Chloride 0.9% 10 Ml Flush Syringe IV PRN PRN LINE FLUSH Sodium Phosphate 250 mg 01/28/22 14:00 01/28/22 22:10 K-Phos Neutral 250 Mg Tab PO 01/29/22 13:59 250 mg QID NISHI Administration
--- NOTE | 2022-01-29 09:11 | Gastroenterology Progress Note ---
Assessment and Plan Clinically suspect patient developed acute pancreatitis due to the increased alcohol intake that she had recently precipitated the acute nausea vomiting which caused the pneumomediastinum If continues to do well anticipate discharge in the next 24 to 48 hours pending electrolyte imbalance correction Patient with severe hypokalemia, continue to replete - Patient Problems (1) Acute alcoholic pancreatitis Current Visit: Yes Status: Acute (2) Boerhaave syndrome Current Visit: Yes Status: Acute (3) Nausea & vomiting Current Visit: Yes Status: Acute (4) Pneumomediastinum Current Visit: Yes Status: Acute Subjective Date of service: 01/29/22 Principal diagnosis: Pneumomediastinum Interval history: Patient reports overall feeling better still with some soreness of the abdomen which is mild epigastric improving constant Reports tolerating clears without any difficulty other than the fact that she does not like the Jell-O Objective - Constitutional Vitals: Temp Pulse Resp BP Pulse Ox 98.0 F 82 16 125/86 99 01/28/22 16:56 01/28/22 21:00 01/28/22 21:00 01/28/22 16:56 01/28/22 21:00 General appearance: no acute distress - EENT Eyes: EOM intact ENT: hearing intact - Neck Neck: supple - Respiratory Respiratory effort: normal - Cardiovascular Rhythm: regular - Gastrointestinal General gastrointestinal: Present: soft, normal bowel sounds, other (Minimal tenderness to palpation) - Labs CBC & Chem 7: 01/28/22 04:53 01/29/22 06:33 Labs: Laboratory Results - last 24 hr 01/28/22 01/28/22 01/28/22 06:13 13:55 23:35 Sodium Potassium Chloride Carbon Dioxide Anion Gap BUN Creatinine Estimated GFR BUN/Creatinine Ratio Glucose POC Glucose 128 H 116 H 160 H Calcium Phosphorus Magnesium 01/29/22 01/29/22 01/29/22 06:05 06:33 06:33 Sodium 138 Potassium 2.9 L* Chloride 102.4 Carbon Dioxide 23 Anion Gap 16 BUN < 1 L Creatinine 0.3 L Estimated GFR > 60 BUN/Creatinine Ratio 3 Glucose 116 H POC Glucose 109 H Calcium 8.5 Phosphorus 1.40 L Magnesium 2.00
[2022-01-29] MEDS: K-PHOS NEUTRAL 250 MG TAB PO SCH (09:30)
[2022-01-29] MEDS: PANTOPRAZOLE 40 MG INJ IV SCH ×2 (09:30→21:34)
[2022-01-29] MEDS: POTASSIUM CHLORIDE 10 MEQ 10 MEQ/100 ML BAG IV SCH ×4 (09:32→15:15)
[2022-01-29] MEDS ORDERED: POTASSIUM CHLORIDE ER 20 MEQ TAB PO SCH (10:00)
[2022-01-29] MEDS ORDERED: SODIUM CHLORIDE 0.9% 100 ML IVPB IV SCH (11:20)
[2022-01-29] MEDS ORDERED: SODIUM CHLORIDE 0.9% 1000 ML 1,000 ML IV SCH (11:45)
[2022-01-29 12:02] LABS: Iron 57 ug/dL (37-170); Total Iron Binding Capacity 226 mcg/dL (250-450)
[2022-01-29] MEDS: ACETAMINOPHEN 325 MG TAB PO PRN (14:18)
[2022-01-29] MEDS: oxyCODONE /ACETAMINOPHEN 5-325MG TAB PO PRN (17:19)
[2022-01-30] MEDS: oxyCODONE /ACETAMINOPHEN 5-325MG TAB PO PRN ×2 (00:28→06:29)
[2022-01-30 05:05] VITALS: BP 105/65
[2022-01-30] MEDS: cefTRIAXone/NS 2 GM/100 ML 2 GM/100 ML BAG IV SCH (06:29)
[2022-01-30 07:23] LABS: Calcium 8.4 mg/dL (8.4-10.2); Hemolysis Index 0
[2022-01-30 07:41] LABS: BUN/Creatinine Ratio 3; Blood Urea Nitrogen < 1 mg/dL (7-17)
[2022-01-30] MEDS: PANTOPRAZOLE 40 MG INJ IV SCH (09:01)
[2022-01-30] MEDS: D5W/0.45% NACL 1,000 ML IV SCH (09:02)
--- NOTE | 2022-01-30 09:59 | Discharge Summary ---
Providers - Providers Date of Admission: 01/27/22 03:31 Date of discharge: 01/30/22 Attending physician: GABRIELA SHAFER MD 01/26/22 23:27 Consult to Physician [CONS] Stat Comment: Consulting Provider: ROSANNA MADRID Physician Instructions: Reason For Exam: pneumediastinum Primary care physician: [employer] Hospitalization Reason for admission: epigastric pain Condition: Stable Hospital course: Interval history: This is a 26-year-old female with EtOH abuse and anxiety who presents to the emergency department 01/26 for evaluation of nausea and vomiting, epigastric, right upper quadrant, right lower quadrant pain, diarrhea and dry cartilage stools for the past 4 days with inability to tolerate p.o. intake. Work-up in the emergency department included a CT chest which showed a small lower posterior Pneumomediastinum minimal retrocrural gas, no evidence of esophageal injury with no extravasation seen and no source of the small amount of air identified, abdomen/pelvis CT with contrast showed small pneumomediastinum with a small amount of gas extending to the right retrocrural space, in view of history of vomiting Boerhaave syndrome be considered, VQ scan showed very low probability of pulmonary embolism and CT chest showed mild pneumomediastinum related to lower esophagus. Work-up in the emergency department revealed acidosis on ABG with pH of 7.1, severe metabolic acidosis with CO2 of 8, lactic acidosis at 2.3, elevated lipase at 877 and hyperkalemia at 5.2. Of note UDS was positive for marijuana. ED attempted to transfer patient however was unable to and patient was ultimately started on a D5 bicarbonate drip and admitted to IMCU with consults to GI and CCM. Hospital course to date: 01/27: Patient given normal saline and LR boluses, continued on D5 half-normal saline. EtOH level and abdominal ultrasound ordered. 01/28: Patient's lipase better, abdominal ultrasound completed. Patient will be started on diet and transferred to the floor. 01/29: tolerating clear diet well. GI recs noted. Possible d/c in next 24-48 hrs. Replacing potassium this AM. Recheck in PM. Cramping in leg noted, possibly due to electrolytes. Patient also has a prior hx of iron deficiency anemia due to long menstrual cycles which could also be responsible for leg cramps. Hgb is normal for her age/sex and MCV is in normal range. Nevertheless, will order iron study. 01/30: Tolerating diet this AM well. Cleared by GI for discharge. Discharge today. Plan to discharge home with rx for protonix, kcl supplements, lidocaine patch. Patient instructed to follow up outpatient with gastroenterology and her primary care physician. Assessment and plan: Neuro: ETOH abuse -Plasma alcohol level less than 0.01 -CIWA protocol -As needed analgesia -Reorientation as needed -Maintain sleep-wake cycle Cardiac: NAD -Blood pressure monitoring per protocol Respiratory: NAD -S/p sodium bicarb IV push -Serum bicarbonate drip -Currently on room air -SPO2 monitoring per protocol -Pulmonary hygiene GI: Acute pancreatitis, Boerhaave syndrome -CT chest which showed a small lower posterior pneumomediastinum minimal retrocrural gas, no evidence of esophageal injury with no extravasation seen and no source of the small amount of air identified -Abdomen/pelvis CT with contrast showed small pneumomediastinum with a small amount of gas extending to the right retrocrural space, in view of history of vomiting Boerhaave syndrome be considered -CT chest showed mild pneumomediastinum related to lower esophagus. -GI consulted, appreciate recommendations -CLD -PPI -MIVF -lipase trending down -Abdominal ultrasound shows right liver lesion slightly echogenic which could represent meningioma or nonspecific (follow-up CT examination), pancreas is slightly prominent however no well-defined masses seen, left kidney is slightly prominent which could represent dromedullary hump versus underlying lesion, no definition seen on recent CT : Metabolic acidosis, hypokalemia, hypophosphatemia -CCM consulted, appreciate recommendations -Monitor intake and output -Renally dose medications -Avoid nephrotoxic medications -s/p Sodium bicarbonate drip -Replete with K-Phos -Trend BMP ID: SIRS -Presented with tachycardia, lactic acidosis -Antibiotic therapy with Rocephin -Monitor WBC and temperature curve Endo: NAD -Avoid hypoglycemia -Accu-Cheks every 6 while n.p.o. Heme: Elevated D-dimer -VQ scan with very low probability of pulm embolism -Trend CBC -Transfuse hemoglobin less than 7 -SCDs to BLE while in bed #Advance care planning Disease education conducted, care plan discussed, diagnoses discussed, prognosis discussed, patient is full code, patient acknowledges understanding and agree with care plan, +30 minutes. Disposition: 01 HOME / SELF CARE / HOMELESS Final Discharge Diagnosis (Prints w/discharge instructions): Boerhave's syndrome, severe metabolic acidosis, ETOH abuse, acute pancreatitis, hypokalemia. Time spent for discharge: 35 Core Measure Documentation - Palliative Care Palliative Care/ Comfort Measures: Not Applicable - Core Measures Any of the following diagnoses?: none Exam - Physical Exam Narrative exam: General appearance: Present: no acute distress, well-nourished - EENT Eyes: Present: PERRL, EOM intact ENT: hearing intact, clear oral mucosa - Neck Neck: Present: normal ROM - Respiratory Respiratory effort: normal Respiratory: bilateral: CTA - Cardiovascular Rhythm: regular Heart Sounds: Present: S1 & S2. Absent: systolic murmur, diastolic murmur - Extremities Extremities: no ischemia, pulses intact, pulses symmetrical, No edema, normal temperature, normal color Peripheral Pulses: within normal limits - Abdominal General gastrointestinal: soft, non-tender, non-distended, normal bowel sounds - Integumentary Integumentary: Present: warm, dry - Psychiatric Psychiatric: cooperative - Neurologic Neurologic: CNII-XII intact, no focal deficits, moves all extremities - Allied Health Allied health notes reviewed: nursing, RT - Constitutional Vitals: Temp Pulse Resp BP Pulse Ox 97.5 F L 82 17 105/65 100 01/30/22 04:25 01/30/22 04:25 01/30/22 07:29 01/30/22 04:25 01/30/22 04:25 Plan Follow up with: PILI STRATTON MD [Primary Care Provider] - 3-5 Days ASHLY KEARNEY MD [Staff Physician] - 7 Days
[2022-01-30] MEDS ORDERED: POTASSIUM CHLORIDE ER 20 MEQ TAB PO SCH (10:00)
--- NOTE | 2022-01-30 11:02 | Gastroenterology Progress Note ---
Assessment and Plan Clinically suspect patient developed acute pancreatitis due to the increased alcohol intake that she had recently precipitated the acute nausea vomiting which caused the pneumomediastinum Can discharge, f/u prn regarding flank pain, more likely msk, no sign of infection or abscess clinically, gave her red flags that require going to the ER - Patient Problems (1) Acute alcoholic pancreatitis Current Visit: Yes Status: Acute (2) Boerhaave syndrome Current Visit: Yes Status: Acute (3) Nausea & vomiting Current Visit: Yes Status: Acute (4) Pneumomediastinum Current Visit: Yes Status: Acute Subjective Date of service: 01/30/22 Principal diagnosis: Pneumomediastinum Interval history: Patient reports overall feeling better still with some soreness of the left flank no fevers no chills no chest tightness Objective - Constitutional Vitals: Temp Pulse Resp BP Pulse Ox 97.5 F L 82 17 105/65 98 01/30/22 04:25 01/30/22 04:25 01/30/22 07:29 01/30/22 04:25 01/30/22 08:49 General appearance: no acute distress - EENT Eyes: EOM intact - Neck Neck: supple - Respiratory Respiratory effort: normal - Gastrointestinal General gastrointestinal: Present: soft, non-tender - Labs CBC & Chem 7: 01/28/22 04:53 01/30/22 06:43 Labs: Laboratory Results - last 24 hr 01/29/22 01/29/22 01/29/22 06:33 06:33 11:15 Sodium Potassium Chloride Carbon Dioxide Anion Gap BUN Creatinine Estimated GFR BUN/Creatinine Ratio Glucose POC Glucose 136 H Calcium Magnesium Iron 57 TIBC 226 L Ferritin 138.9 01/29/22 01/29/22 01/30/22 16:55 19:37 06:43 Sodium 140 Potassium 3.5 L D 3.4 L Chloride 105.2 Carbon Dioxide 27 Anion Gap 11 BUN < 1 L Creatinine 0.3 L Estimated GFR > 60 BUN/Creatinine Ratio 3 Glucose 110 H POC Glucose 125 H Calcium 8.4 Magnesium 1.80 Iron TIBC Ferritin
== END 2022-01-30 11:55 | disposition home or self-care (01) | DRG 438 ==
LOC: ED 12:38 → IMCU 01-27 03:31 → CC1 01-27 05:28 → 3A 01-28 16:11
PROVIDERS: ADMIT Hospitalist; ATTEND Internal Medicine
PROC: 4A033R1 Measurement of Arterial Saturation, Peripheral, Percutaneous Approach (ICD-10-PCS; principal; 2022-01-26)
DX: K85.20 Alcohol induced acute pancreatitis without necrosis or infection (principal); K22.3 Perforation of esophagus; Z20.822 Contact with and (suspected) exposure to COVID-19; E87.2 Acidosis; J98.2 Interstitial emphysema; E87.6 Hypokalemia; F41.9 Anxiety disorder, unspecified; F10.10 Alcohol abuse, uncomplicated; Y90.9 Presence of alcohol in blood, level not specified; E87.5 Hyperkalemia; R65.10 Systemic inflammatory response syndrome (SIRS) of non-infectious origin without acute organ dysfunction; E83.39 Other disorders of phosphorus metabolism; Z82.49 Family history of ischemic heart disease and other diseases of the circulatory system; Z83.79 Family history of other diseases of the digestive system
CPT/HCPCS: 36415; 36600; 71046; 71250; 74177; 76700; 78580; 80048; 80053; 80307; 80320; 81001; 82140; 82550; 82728; 82803; 82962; 83550; 83690; 83735; 83880; 84100; 84132; 84484; 84703; 85025; 85027; 85379; 93005; 96374; 96375; 99291; G0378; J3490; J7070; J7510; A9540; C9113; G0480; J0696; J2060; J2270; J2405; J2543; J3475; J3480; J7030; J7040; J7120; Q9967; U0003